=== PATIENT | female | born 1965 | race Caucasian/White ===

== ENCOUNTER 2016-11-12 18:15 | Emergency (ER) | payer BC, OTHER ==
--- NOTE | 2016-11-12 18:58 | EDM.PDOC ---
ED HPI GI/ABDOMINAL - General Chief Complaint: Gastrointestinal Problem Stated Complaint: VOMITING, UNABLE TO URINATE, DIARRHEA Time Seen by Provider: 11/12/16 18:57 Source of Information: Reports: Patient History Limitations: Reports: No limitations - History of Present Illness INITIAL COMMENTS - FREE TEXT/NARRATIVE: 50-year-old female presents the ED with acute onset of gastroenteritis symptoms. She states she woke around 0800 hours this morning with a severe nausea. She has not vomited yet today. She can hardly eat or drink. She maybe has kept on 20 ounces of water today. She's had large-volume stool losses 6-7 times mostly water without blood. No associated cramping. Associated fever with some chills in fact she can't keep warm today. Temperature up to 101.5 at home. Minimal cough generalized myalgias mild headache. No exposure that we can identify for foodborne illness. No no she knows is ill at this time. She has irritable bowel syndrome. Previous abdominal surgery includes a hysterectomy with retention of the ovaries. She reports she's dizzy and lightheaded when standing and very weak. She states she voided about 0900 hours this morning and nothing since. Symptom Onset Date: 11/12/16 Symptom Onset Time: 08:00 Timing/Duration: Reports: Hour(s):, Sudden onset Location: generalized Quality: Reports: ache, fullness. Denies: cramping, stabbing, throbbing, radiating Severity: moderate Improves with: Reports: defecating Context: Denies: sick contact, bad/questionable food, out of country travel, recent surgery, recent trauma, lifting, activity/exercise, other Associated Symptoms (-Female): Reports: diarrhea, fever/chills (Generalized myalgia), loss of appetite, malaise, nausea/vomiting, other. 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: Other (see below) (Nausea without vomiting no) - Related Data Allergies/ADRs: Allergies Allergy/AdvReac Type Severity Reaction Status Date / Time grass pollen Allergy Other Verified 11/12/16 18:32 oxycodone HCl Allergy Itching Verified 11/12/16 18:32 [From OxyContin] pollen extracts Allergy Other Verified 11/12/16 18:32 pet dander Allergy Other Uncoded 11/12/16 18:32 Home Meds: Home Meds Atenolol 50 mg PO DAILY 08/03/15 [History] Biotin 1 mg PO DAILY 08/03/15 [History] Calcium Carbonate/Vitamin D3 [Calcium 600 + D Tablet] 1 tab PO DAILY 08/03/15 [ History] Loratadine [Claritin] 10 mg PO DAILY 08/03/15 [History] Multivitamin [Daily Alex] 1 tab PO DAILY 08/03/15 [History] buPROPion [Wellbutrin XL] 300 mg PO DAILY 08/03/15 [History] Cholecalciferol (Vitamin D3) [Vitamin D3] 5,000 unit PO DAILY 04/11/16 [History] Ginkgo Biloba [place] Extract [Ginkgo] 60 mg PO DAILY 04/11/16 [History] Ondansetron [Zofran ODT] 4 mg PO Q6H #5 tab.dis 11/12/16 [Rx] Past Medical History HEENT History: Reports: Impaired vision Other HEENT History: Wears glasses Cardiovascular History: Reports: Arrhythmia Other Cardiovascular History: PSVT Respiratory History: Reports: Asthma Gastrointestinal History: Reports: Irritable bowel syndrome Genitourinary History: Reports: Renal calculus, Urinary incontinence Musculoskeletal History: Reports: Other (see below) (Scoliosis) Neurological History: Reports: Headaches, chronic Psychiatric History: Reports: ADHD, Depression Endocrine/Metabolic History: Reports: Obesity/BMI 30+ - Past Surgical History HEENT Surgical History: Reports: Naso-sinus surgery, Oral surgery, Tonsillectomy Female Surgical History: Reports: Hysterectomy, Tubal ligation Social & Family History - Family History Family Medical History: Noncontributory Oncologic: Reports: Colon, Leukemia, Lung - Tobacco Use Smoking Status *Q: Former Smoker Years of Tobacco use: 12 Packs/Tins Daily: 0.1 Used Tobacco, but Quit: Yes Month Tobacco Last Used: Oct 2015 Tobacco Use Comment: quit smoking 1 year ago Second Hand Smoke Exposure: No - Caffeine Use Caffeine Use: Reports: None - Alcohol Use Days Per Week of Alcohol Use: 1 Number of Drinks Per Day: 2 Total Drinks Per Week: 2 - Recreational Drug Use Recreational Drug Use: No Drug Use in Last 12 Months: No - Living Situation & Occupation Living situation: Reports: , with spouse Occupation: unemployed ED ROS GENERAL - Review of Systems Review Of Systems: See Below Constitutional: Reports: fever, chills, malaise, weakness, fatigue, decreased appetite HEENT: Reports: No symptoms Respiratory: Reports: cough Cardiovascular: Reports: No symptoms (Minimal nonproductive cough) Endocrine: Reports: fatigue GI/Abdominal: Reports: Abdominal pain, Diarrhea (6-7 large volume water stool losses today. Mostly yellow and watery color.), Decreased appetite, Nausea. Denies: Vomiting : Reports: no symptoms Musculoskeletal: Reports: muscle pain (Generalized myalgia.) Skin: Reports: no symptoms Neurological: Reports: dizziness (When she stands up and tries to walk. Very weak.) Psychiatric: Reports: No symptoms Hematologic/Lymphatic: Reports: no symptoms Immunologic: Reports: no symptoms ED EXAM, GI/ABD - Physical Exam Exam: See Below Exam Limited By: No limitations General Appearance: alert, WD/WN, mild distress, other (Feels warm to palpation. ) Eyes: bilateral: normal appearance Throat/Mouth: Other Head: atraumatic (Tongue appears mildly dry.), normocephalic Neck: normal inspection, supple, non-tender, full range of motion. No: lymphadenopathy (L), lymphadenopathy (R) Respiratory/Chest: no respiratory distress, lungs clear, normal breath sounds, no accessory muscle use, chest non-tender. No: rales, rhonchi, wheezing Cardiovascular: normal peripheral pulses, regular rate, rhythm, no edema, no gallop, no murmur, no rub GI/Abdominal: normal bowel sounds, soft, non tender, no organomegaly, no distention, no abnormal bruit, no mass, other (Mildly obese.) Back Exam: normal inspection, full range of motion. No: CVA tenderness (L), CVA tenderness (R) Extremities: normal inspection, normal range of motion, non-tender, no pedal edema, normal capillary refill Neurological: alert, oriented, CN II-XII intact, normal cognition Psychiatric: normal affect, normal mood Skin Exam: Warm, Dry, Intact, Normal color, No rash, Other Course - Vital Signs Text/Narrative:: 50-year-old female presents the ED with acute onset of gastroenteritis symptoms since get o'clock this morning. Associated persistent nausea with inability to eat or drink much at all today. No vomiting. She's had 6-7 large volume water loss stools today but is mostly yellow. No recent antibiotic usage. Associated fever and quite significant chills. Does have a minimal nonproductive cough. Generalized myalgia with a headache. Concern for possible influenza B as it is running rampant in the community. Likely viral gastroenteritis. Plan IV D5 normal saline at open. Reglan 10 mg IV for nausea relief. Routine labs to be performed. If she has a stool will check it for WBCs. Last Recorded V/S: Last Vital Signs Temp 38.2 C H 11/12/16 20:07 Pulse 103 H 11/12/16 20:07 Resp 18 11/12/16 20:07 BP 123/74 11/12/16 20:07 Pulse Ox 100 11/12/16 20:07 - Orders/Labs/Meds Orders: Active Orders 24 hr Category Date Time Status WBC, STOOL [OP] Stat Lab 11/12/16 19:16 Uncollected Dextrose 5%-0.9% NaCl [Dextrose 5%-Normal Saline] 1,000 Med 11/12/16 19:15 Active ml IV ASDIRECTED Medication Orders Dextrose/Sodium Chloride (Dextrose 5%-Normal Saline) 1,000 mls @ 999 mls/hr IV ASDIRECTED DEION Last Admin: 11/12/16 19:24 Dose: 999 mls/hr Labs: Laboratory Tests 11/12/16 11/12/16 11/12/16 Range/Units 19:20 19:20 20:33 WBC 10.10 H (3.98-10.04) K/mm3 RBC 4.35 (3.98-5.22) M/mm3 Hgb 13.1 (11.2-15.7) gm/L Hct 39.6 (34.1-44.9) % MCV 91.0 (79.4-94.8) fl MCH 30.1 (25.6-32.2) pg MCHC 33.1 (32.2-35.5) g/dl RDW Std Deviation 40.9 (36.4-46.3) fL Plt Count 288 (182-369) K/mm3 MPV 10.1 (9.4-12.3) fl Neutrophils % (Manual) 93 H (40-60) % Band Neutrophils % 0 (0-10) % Lymphocytes % (Manual) 5 L (20-40) % Atypical Lymphs % 0 % Monocytes % (Manual) 1 L (2-10) % Eosinophils % (Manual) 1 (0.7-5.8) % Basophils % (Manual) 0 L (0.1-1.2) Platelet Estimate Adequate Plt Morphology Comment See note RBC Morph Comment Normal Sodium 136 (136-145) mEq/L Potassium 3.8 (3.5-5.1) mEq/L Chloride 101 (98-107) mEq/L Carbon Dioxide 26 (21-32) mEq/L Anion Gap 12.8 (5-15) BUN 13 (7-18) mg/dL Creatinine 0.9 (0.55-1.02) mg/dL Est Cr Clr Drug Dosing 70.01 mL/min Estimated GFR (MDRD) > 60 (>60) mL/min BUN/Creatinine Ratio 14.4 (14-18) Glucose 105 (74-106) mg/dL Calcium 8.9 (8.5-10.1) mg/dL Total Bilirubin 0.4 (0.2-1.0) mg/dL AST 18 (15-37) U/L ALT 39 (14-59) U/L Alkaline Phosphatase 79 (46-116) U/L C-Reactive Protein 5.8 H* (<1.0) mg/dL Total Protein 7.2 (6.4-8.2) g/dl Albumin 3.6 (3.4-5.0) g/dl Globulin 3.6 gm/dL Albumin/Globulin Ratio 1.0 (1-2) Urine Color Yellow (Yellow) Urine Appearance Clear (Clear) Urine pH 6.5 (5.0-8.0) Ur Specific [place] 1.020 (1.005-1.030) Urine Protein Negative (Negative) Urine Glucose (UA) Negative (Negative) Urine Ketones Negative (Negative) Urine Occult Blood Trace-intact H (Negative) Urine Nitrite Negative (Negative) Urine Bilirubin Negative (Negative) Urine Urobilinogen 0.2 (0.2-1.0) Ur Leukocyte Esterase Negative (Negative) Urine RBC 0-5 (0-5) /hpf Urine WBC 0-5 (0-5) /hpf Ur Epithelial Cells 0-5 (0-5) /hpf Urine Bacteria Rare (FEW) /hpf Urine Mucus Not seen (FEW) /hpf Meds: Medications Generic Name Dose Route Start Last Admin Trade Name Evan PRN Reason Stop Dose Admin Dextrose/Sodium Chloride 1,000 mls @ 999 mls/hr 11/12/16 19:15 11/12/16 19:24 Dextrose 5%-Normal Saline IV 999 mls/hr ASDIRECTED DEION Administration Discontinued Medications Generic Name Dose Route Start Last Admin Trade Name Evan PRN Reason Stop Dose Admin Ibuprofen 600 mg 11/12/16 19:30 11/12/16 19:28 Motrin PO 11/12/16 19:31 600 mg ONETIME ONE Administration Metoclopramide HCl 10 mg 11/12/16 19:05 11/12/16 19:27 Reglan IVPUSH 11/12/16 19:06 10 mg ONETIME ONE Administration - Radiology Interpretation Free Text/Narrative:: 50-year-old female presents the ED with acute onset of gastroenteritis. About 0830 hours this morning she developed acute nausea and inset dry heaving since. She did produce some bilious emesis but swallowed it once today. She said large volume stool loss x6 or 7 today watery and yellow with no blood. Associated minimal abdominal cramping pain. Some nausea she can't eat or keep anything down and is getting lightheaded and dizzy. Plan IV D5 normal saline at open. Reglan 10 mg IV for nausea relief. Routine labs to be performed and a urinalysis. - Re-Assessments/Exams Free Text/Narrative Re-Assessment/Exam: 11/12/16 21:15labs revealed a normal white count at 10.10. Differential was 93% neutrophils and no bands. Hemoglobin 13.1 hematocrit 39.6 platelets 288,000. Sodium 136 potassium 3.8 CRP is elevated at 5.8 anion gap is 12.8. Between be elevated or left shift of the white count and the elevated CRP is suggests a bacterial source of her illness. I'm going to send her home as she is feeling much improved and able to drink fluids in the ED. She completed a liter of D5 normal saline and has no nausea Reglan 10 mg IV. To be discharged on Zofran 4 mg sublingual every 4-6 hours p.m. for nausea or vomiting relief. I'm going to write a prescription for Cipro 500 mg twice daily for 5 days to start tomorrow if she has more than for further loose stools. Followup with her personal physician if any further problems occur. Of note she was never able to produce a stool specimen in the ED for white cell or culture assessment. Departure - Departure Time of Disposition: 21:07 Disposition: Home, Self-Care 01 Condition: fair Clinical Impression: Gastroenteritis Prescriptions: Ondansetron [Zofran ODT] 4 mg PO Q6H #5 tab.dis Instructions: Viral Gastroenteritis, Adult Referrals: Patti Avitia, MACHINE OPERATOR ASSISTANT [Primary Care Provider] - Forms: ED Department Discharge, Return to Work/School Form Additional Instructions: evaluation in the emergency department today in regards to development of acute gastroenteritis with severe nausea and associated dry heaves and significant loose watery diarrhea. No history to suggest possible foodborne illness. Lab work showed a normal white count but it did show some mild inflammation with a mildy elevated CRP at 5.8.this sometimes can be suggestive of a bacterial source of diarrhea. You're treated with a liter of IV fluids in the ED and Reglan 10 mg IV disease nausea. The remainder of her labs and urine test were normal. Treatment at home is Zofran 4 mg under the tongue every 4-6 hours as needed for relief of nausea or vomiting. The next tablet to be taken about midnight and I would suggest repeating at about 6:00 in the morning to ensure no vomiting over the next 12 hours. After this a may be used as needed. Rehydrate you a prescription for antibiotic Cipro 500 mg twice daily for 5 days if he should develop bacterial associated diarrhea. I don't want you to fill this prescription unless you develop more than 4 loose movements again tomorrow. Diet should be clear fluids such Gatorade Powerade ideally 5-6 ounces per hour. If tolerated then may progress to crackers when you become hungry. He then progressed to red. May then progress to broth soup or turkey rice turkey noodle except. Suggesting away from all dairy products and no apple or grape juice until stools are formed backup. Followup if not markedly improved we will back to normal in 48 hours time. - My Orders Last 24 Hours: My Active Orders 11/12/16 19:15 Dextrose 5%-0.9% NaCl [Dextrose 5%-Normal Saline] 1,000 ml IV ASDIRECTED 11/12/16 19:16 WBC, STOOL [OP] Stat - Assessment/Plan Last 24 Hours: My Active Orders 11/12/16 19:15 Dextrose 5%-0.9% NaCl [Dextrose 5%-Normal Saline] 1,000 ml IV ASDIRECTED 11/12/16 19:16 WBC, STOOL [OP] Stat
[2016-11-12] MEDS ORDERED: Metoclopramide 10 MG/2 ML SDV IVPUSH ONE (19:05)
[2016-11-12] MEDS ORDERED: Dextrose 5%-0.9% NaCl 1,000 ML IV SCH (19:15)
[2016-11-12] MEDS ORDERED: Ibuprofen 600 MG Tab PO ONE (19:30)
[2016-11-12 21:22] VITALS: BP 107/64
== END 2016-11-12 21:20 | disposition home or self-care (01) ==
LOC: JD.ED 18:15
DX: K52.9 Noninfective gastroenteritis and colitis, unspecified (principal); I49.9 Cardiac arrhythmia, unspecified; J45.909 Unspecified asthma, uncomplicated; F32.9 Major depressive disorder, single episode, unspecified; E66.9 Obesity, unspecified; Z87.891 Personal history of nicotine dependence; Z88.8 Allergy status to other drugs, medicaments and biological substances; Z79.899 Other long term (current) drug therapy; Z98.890 Other specified postprocedural states; Z90.710 Acquired absence of both cervix and uterus; Z98.51 Tubal ligation status
CPT/HCPCS: 36415; 80053; 81001; 85025; 86140; 87804; 96361; 96374; 99284; A9270; J2765; J7042

== ENCOUNTER 2017-11-30 11:36 | Emergency (ER) | payer OTHER ==
[2017-11-30 11:51] VITALS: BP 128/92
[2017-11-30] MEDS ORDERED: Ketorolac 60 MG/2 ML SDV IM ONE (13:36)
[2017-11-30] MEDS ORDERED: HYDROmorphone 1 MG/ML Syringe IM ONE (13:38)
--- NOTE | 2017-11-30 13:40 | EDM.PDOC ---
ED HPI GENERAL MEDICAL PROBLEM - General Chief Complaint: Upper Extremity Injury/Pain Stated Complaint: SHOULDER PAIN AND LT ARM WEAKNESS Time Seen by Provider: 11/30/17 13:19 Source of Information: Reports: Patient History Limitations: Reports: No Limitations - History of Present Illness INITIAL COMMENTS - FREE TEXT/NARRATIVE: 51-year-old female presents for evaluationand treatment of pain to the left neck, left shoulder and left arm. Reportedly the patient's symptoms started on Saturday. No known trauma to the area. She is appreciating weakness to the left side. No numbness or tingling to the left arm. She reports inability to sleep due to the pain. Pain is made much worse by movement. In addition, she reports associated headaches. No dizziness, lightheadedness or syncope. Patient describes the pain as a dull, achy sensation. Reports the pain as a 6 or 7 out of 10 at rest. With movement the pain is an 8 or 9 out of 10. Denies any chest pain, shortness breath, nausea or vomiting. No previous surgeries or trauma to the neck. Location: Reports: Neck, Upper Extremity, Left Left Shoulder Pain Score (Numeric/FACES): 7 - Related Data Allergies Allergy/AdvReac Type Severity Reaction Status Date / Time grass pollen Allergy Other Verified 11/12/16 18:32 oxycodone HCl Allergy Itching Verified 11/12/16 18:32 [From OxyContin] pollen extracts Allergy Other Verified 11/12/16 18:32 pet dander Allergy Other Uncoded 11/12/16 18:32 Home Meds: Home Meds Atenolol 50 mg PO DAILY 08/03/15 [History] Biotin 1 mg PO DAILY 08/03/15 [History] Calcium Carbonate/Vitamin D3 [Calcium 600 + D Tablet] 1 tab PO DAILY 08/03/15 [ History] Loratadine [Claritin] 10 mg PO DAILY 08/03/15 [History] Multivitamin [Daily Alex] 1 tab PO DAILY 08/03/15 [History] buPROPion [Wellbutrin XL] 300 mg PO DAILY 08/03/15 [History] Cholecalciferol (Vitamin D3) [Vitamin D3] 5,000 unit PO DAILY 04/11/16 [History] Acetaminophen/HYDROcodone [[place] 325-5 MG] 1 tab PO Q6H PRN #15 tablet 11/30/17 [Rx] Orphenadrine [Norflex] 100 mg PO BID PRN #20 tab.er 11/30/17 [Rx] hydrOXYzine HCl [Atarax] 25 mg PO BEDTIME PRN 11/30/17 [History] Past Medical History HEENT History: Reports: Impaired Vision Other HEENT History: Wears glasses Cardiovascular History: Reports: Arrhythmia Other Cardiovascular History: PSVT Respiratory History: Reports: Asthma Gastrointestinal History: Reports: Irritable Bowel Syndrome Genitourinary History: Reports: Renal Calculus, Urinary Incontinence Musculoskeletal History: Reports: Other (See Below) Neurological History: Reports: Headaches, Chronic Psychiatric History: Reports: ADHD, Depression Endocrine/Metabolic History: Reports: Obesity/BMI 30+ - Past Surgical History HEENT Surgical History: Reports: Naso-Sinus Surgery, Oral Surgery, Tonsillectomy Female Surgical History: Reports: Hysterectomy, Tubal Ligation Musculoskeletal Surgical History: Reports: Other (See Below) Social & Family History - Family History Family Medical History: Noncontributory Oncologic: Reports: Colon, Leukemia, Lung - Tobacco Use Smoking Status *Q: Former Smoker Years of Tobacco use: 12 Packs/Tins Daily: 0.1 Used Tobacco, but Quit: Yes Month/Year Tobacco Last Used: 2 years ago Second Hand Smoke Exposure: No - Caffeine Use Caffeine Use: Reports: Coffee - Alcohol Use Days Per Week of Alcohol Use: 1 Number of Drinks Per Day: 2 Total Drinks Per Week: 2 - Recreational Drug Use Recreational Drug Use: No Drug Use in Last 12 Months: No - Living Situation & Occupation Living situation: Reports: , with Spouse Occupation: Unemployed Review of Systems - Review of Systems Review Of Systems: See Below Respiratory: Denies: Shortness of Breath Cardiovascular: Denies: Chest Pain Musculoskeletal: Reports: Neck Pain (left), Shoulder Pain (left), Arm Pain (left ) Skin: Denies: Rash Neurological: Reports: Weakness (Left arm). Denies: Numbness, Tingling ED EXAM, GENERAL - Physical Exam Exam: See Below Exam Limited By: No Limitations General Appearance: Alert, WD/WN, Moderate Distress Ears: Normal External Exam Nose: Normal Inspection Throat/Mouth: Normal Inspection, Normal Lips, Normal Voice, No Airway Compromise Neck: Normal Inspection, Supple, Non-Tender, Full Range of Motion, Other ( Positive Spurling's test) Respiratory/Chest: No Respiratory Distress, Lungs Clear, Normal Breath Sounds Cardiovascular: Normal Peripheral Pulses, Regular Rate, Rhythm, No Murmur Peripheral Pulses: 2+: Radial (L), Radial (R) Back Exam: Normal Inspection, Other (Slight scoliosis present). No: Vertebral Tenderness Extremities: Normal Inspection, Other (Strength testing 5 out of 5 on the right for shoulder flexion, elbow flexion, elbow extension, wrist extensor, wrist extension and finger abduction. Testing on the left shows strength 4.5 out of 5 for shoulder flexion, elbow flexion, elbow extension, wrist flexion. Strength 5 out of 5 on the left for wrist extension and finger abduction) Neurological: Alert, Oriented, Normal Cognition Psychiatric: Normal Affect, Normal Mood Skin Exam: Warm, Dry. No: Erythema, Rash, Zoster-Like Rash Course - Vital Signs Last Recorded V/S: Last Vital Signs Temp 36.9 C 11/30/17 11:48 Pulse 78 11/30/17 11:48 Resp 18 11/30/17 11:48 BP 128/92 H 11/30/17 11:48 Pulse Ox 96 11/30/17 11:48 - Orders/Labs/Meds Meds: Medications Discontinued Medications Generic Name Dose Route Start Last Admin Trade Name Freq PRN Reason Stop Dose Admin Hydromorphone HCl 0.5 mg 11/30/17 13:38 Dilaudid IM 11/30/17 13:39 ONETIME ONE Hydromorphone HCl 0.5 mg 11/30/17 13:52 11/30/17 13:57 Dilaudid IM 11/30/17 13:53 0.5 mg ONETIME ONE Administration Ketorolac Tromethamine 60 mg 11/30/17 13:36 11/30/17 13:58 Toradol IM 11/30/17 13:37 60 mg ONETIME ONE Administration - Radiology Interpretation Free Text/Narrative:: CT cervical spine Technique: Multiple axial sections were obtained from above C1 inferiorly to the top of T1. Reconstructed sagittal and coronal images were reviewed. Comparison: No prior cervical spine imaging. Findings: C1-C2: Segmentation anomaly is noted within C2 which is incidental and a normal variant. C2-C3: Severe disc space narrowing is noted with posterolateral spurring causing mild left-sided neural foraminal stenosis and moderate right-sided neural foraminal stenosis. No central canal stenosis is seen. C3-C4: Disc is mildly narrowed. No central canal stenosis or neural foraminal stenosis is seen. C4-C5: Severe disc space narrowing is seen. Posterolateral spurring is noted on both sides. Moderate right-sided neural foraminal stenosis is seen. Mild to moderate left-sided neural foraminal stenosis is seen. C5-C6: Severe disc space narrowing is noted. Minimal posterior osteophytes are seen. Moderate left-sided neural foraminal stenosis seen. Right neural foramina is patent. C6-C7: Disc height is preserved. No central canal stenosis or neural foraminal stenosis is seen. C7-T1: Disc height is preserved. No central canal stenosis or neural foraminal stenosis is seen. Diffuse degenerative spurring is seen within the uncovertebral joints. Mild scoliosis is seen. No abnormal subluxation is noted. Mild diffuse degenerative apophyseal change is seen. Impression: 1. Diffuse degenerative change as noted above with multiple levels of neural foraminal stenosis. - Re-Assessments/Exams Free Text/Narrative Re-Assessment/Exam: 11/30/17 15:[address] results with the patient. Reports that the pain has improved. Now at 2 at rest and a 3 or 4 with movement. We will put an outpatient order in for her to have an MRI of her cervical spine. She also reports that she is having significant pain to mid and lower back. Patient reports she has a past medical history of scoliosis. States this is significant. She's never had any surgery to her back. We will MRI these areas as well as have the results sent her primary care provider who can help us with the referral to neurosurgery. Discharge instructions as documented. Departure - Departure Time of Disposition: 15:45 Disposition: Home, Self-Care 01 Condition: Fair Clinical Impression: Cervical radiculopathy, Mid back pain, Low back pain, History of scoliosis - Discharge Information Prescriptions: Acetaminophen/HYDROcodone [[place] 325-5 MG] 1 tab PO Q6H PRN #15 tablet PRN Reason: Pain Orphenadrine [Norflex] 100 mg PO BID PRN #20 tab.er PRN Reason: Muscle Spasm Instructions: Back Pain, Adult, [id number] Referrals: Patti Avitia NP [Primary Care Provider] - Forms: ED Department Discharge Additional Instructions: you were given medication the ER that can affect your ability to drive and operate machinery. Do not drive or operate machinery within 12 hours of taking prescription narcotic pain medication. Recommend using ice or heat to the neck and back as needed for pain relief. may also try topical products such as icyhot or BenGay. Rest. Do not be include completely immobile. Activity as tolerated. Norflex 1 tab twice a day as needed for muscle spasms. This medication may make you drowsy. Do not drive or operate machinery into the nose medication will affect you. [id number] Tylenol or Motrin as needed for pain relief. Do not take more than 4 g of Tylenol from all sources in 1 day. Do not take more than 3200 mg of ibuprofen from all sources in 1 day. For pain not relieved by Tylenol or Motrin you may take [place] one tablet every 6 hours as needed for severe pain. [place] is habit-forming, I recommend you take as few of thes as needed to control your pain. Do not drive or operate machinery within 12 hours of taking prescription narcotic pain medication. An outpatient order has been placed read on MRI of your spine. They should call you Saturday to schedule this, if not call [phone] and asked for the radiology department to schedule. The results should then be sent to your primary care provider, Patti Avitia, follow-up with Patti for MRI results and for referral to neurosurgery. Please return to the ER if your symptoms change or worsen.
[2017-11-30] MEDS ORDERED: HYDROmorphone 0.5 MG/0.5 ML SYRINGE IM ONE (13:52)
--- NOTE | 2017-11-30 14:35 | CT ---
CT cervical spine Technique: Multiple axial sections were obtained from above C1 inferiorly to the top of T1. Reconstructed sagittal and coronal images were reviewed. Comparison: No prior cervical spine imaging. Findings: C1-C2: Segmentation anomaly is noted within C2 which is incidental and a normal variant. C2-C3: Severe disc space narrowing is noted with posterolateral spurring causing mild left-sided neural foraminal stenosis and moderate right-sided neural foraminal stenosis. No central canal stenosis is seen. C3-C4: Disc is mildly narrowed. No central canal stenosis or neural foraminal stenosis is seen. C4-C5: Severe disc space narrowing is seen. Posterolateral spurring is noted on both sides. Moderate right-sided neural foraminal stenosis is seen. Mild to moderate left-sided neural foraminal stenosis is seen. C5-C6: Severe disc space narrowing is noted. Minimal posterior osteophytes are seen. Moderate left-sided neural foraminal stenosis seen. Right neural foramina is patent. C6-C7: Disc height is preserved. No central canal stenosis or neural foraminal stenosis is seen. C7-T1: Disc height is preserved. No central canal stenosis or neural foraminal stenosis is seen. Diffuse degenerative spurring is seen within the uncovertebral joints. Mild scoliosis is seen. No abnormal subluxation is noted. Mild diffuse degenerative apophyseal change is seen. Impression: 1. Diffuse degenerative change as noted above with multiple levels of neural foraminal stenosis. Diagnostic code #3
== END 2017-11-30 16:00 | disposition home or self-care (01) ==
LOC: JD.ED 11:36
DX: M54.12 Radiculopathy, cervical region (principal); M54.5 Low back pain; Z79.899 Other long term (current) drug therapy; Z91.09 Other allergy status, other than to drugs and biological substances; Z88.8 Allergy status to other drugs, medicaments and biological substances
CPT/HCPCS: 72125; 96372; 99284; J1170; J1885

== ENCOUNTER 2018-02-19 19:13 | Emergency (ER) | payer OTHER ==
[2018-02-19 19:35] VITALS: BP 128/89
--- NOTE | 2018-02-19 19:39 | EDM.PDOC ---
ED HPI GENERAL MEDICAL PROBLEM - General Chief Complaint: Lower Extremity Injury/Pain Stated Complaint: RIGHT AND ANKLE PAIN Time Seen by Provider: 02/19/18 19:38 Source of Information: Reports: Patient - History of Present Illness INITIAL COMMENTS - FREE TEXT/NARRATIVE: Patient is here for evaluation of an ankle injury that happened just prior to arrival. She states that she was walking and twisted her right ankle and fell. She landed on her knees and her left elbow. Mild pain to those areas, but the majority of her pain is located in the right ankle. She has some swelling to this area as well. She has previously sprained this ankle several times. Right Ankle Pain Score (Numeric/FACES): 8 - Related Data Allergies Allergy/AdvReac Type Severity Reaction Status Date / Time bee venom protein (honey bee) Allergy Swelling Verified 02/19/18 19:35 grass pollen Allergy Other Verified 02/19/18 19:35 oxycodone HCl Allergy Itching Verified 02/19/18 19:35 [From OxyContin] pollen extracts Allergy Other Verified 02/19/18 19:35 pet dander Allergy Other Uncoded 02/19/18 19:35 Home Meds: Home Meds Atenolol 50 mg PO DAILY 08/03/15 [History] Biotin 1 mg PO DAILY 08/03/15 [History] Calcium Carbonate/Vitamin D3 [Calcium 600 + D Tablet] 1 tab PO DAILY 08/03/15 [ History] Multivitamin [Daily Alex] 1 tab PO DAILY 08/03/15 [History] buPROPion [Wellbutrin XL] 300 mg PO DAILY 08/03/15 [History] Cholecalciferol (Vitamin D3) [Vitamin D3] 5,000 unit PO DAILY 04/11/16 [History] hydrOXYzine HCl [Atarax] 25 mg PO BEDTIME PRN 11/30/17 [History] Cetirizine [ZyrTEC] 10 mg PO DAILY 02/19/18 [History] DULoxetine [Cymbalta] 60 mg PO DAILY 02/19/18 [History] Hydrocodone/Acetaminophen [Hydrocodon-Acetaminophen 5-325] 1 each PO Q6HR PRN # 10 tablet 02/19/18 [Rx] Past Medical History HEENT History: Reports: Impaired Vision Other HEENT History: Wears glasses Cardiovascular History: Reports: Arrhythmia Other Cardiovascular History: PSVT Respiratory History: Reports: Asthma Gastrointestinal History: Reports: Irritable Bowel Syndrome Genitourinary History: Reports: Renal Calculus, Urinary Incontinence Musculoskeletal History: Reports: Other (See Below) Neurological History: Reports: Headaches, Chronic Psychiatric History: Reports: ADHD, Depression Endocrine/Metabolic History: Reports: Obesity/BMI 30+ - Past Surgical History HEENT Surgical History: Reports: Naso-Sinus Surgery, Oral Surgery, Tonsillectomy Female Surgical History: Reports: Hysterectomy, Tubal Ligation Musculoskeletal Surgical History: Reports: Other (See Below) Social & Family History - Family History Family Medical History: Noncontributory Oncologic: Reports: Colon, Leukemia, Lung - Tobacco Use Smoking Status *Q: Never Smoker - Caffeine Use Caffeine Use: Reports: None - Recreational Drug Use Recreational Drug Use: Yes Recreational Drug Type: Reports: Marijuana/Hashish Other Recreational Drug Type: 4 years ago - Living Situation & Occupation Living situation: Reports: , with Spouse Occupation: Unemployed Review of Systems - Review of Systems Review Of Systems: See Below Musculoskeletal: Reports: Other (Pain and swelling to right ankle) Skin: Denies: Bruising, Erythema Neurological: Reports: No Symptoms Psychiatric: Reports: No Symptoms ED EXAM, GENERAL - Physical Exam Exam: See Below General Appearance: Alert, WD/WN, Mild Distress Peripheral Pulses: 2+: Posterior Tibial (R), Dorsalis Pedis (R) Extremities: Normal Capillary Refill, Other (Right ankle with moderate swelling to the lateral aspect, no ecchymosis or deformity noted. Tenderness to distal fibula and base of the fifth metatarsal. Limited range of motion at the ankle due to pain. Full range of motion of toes. Neurovascular intact.) Neurological: Alert, Oriented, No Motor/Sensory Deficits Skin Exam: Warm, Dry, Intact Course - Vital Signs Last Recorded V/S: Last Vital Signs Temp 97.1 F 02/19/18 19:31 Pulse 71 02/19/18 19:31 Resp 18 02/19/18 19:31 BP 128/89 02/19/18 19:31 Pulse Ox - Orders/Labs/Meds Orders: Active Orders 24 hr Category Date Time Status Ankle Min 3V Rt [CR] Stat Exams 02/19/18 19:46 Taken Meds: Medications Discontinued Medications Generic Name Dose Route Start Last Admin Trade Name Freq PRN Reason Stop Dose Admin Hydrocodone Bitart/Acetaminophen 1 tab 02/19/18 19:45 02/19/18 19:49 [place] 325-5 Mg PO 02/19/18 19:46 1 tab ONETIME ONE Administration - Re-Assessments/Exams Free Text/Narrative Re-Assessment/Exam: No fracture appreciated on x-ray, official radiology report is pending. Discussed the option of immobilization and NWB with patient, she does not feel she can do this with work. We'll put patient in a walking boot. She'll follow- up with her PCP in a week, certainly if no improvement in symptoms she should do this sooner. ibuprofen as needed for pain, hydrocodone for breakthrough pain. 02/19/18 20:42 Departure - Departure Time of Disposition: 20:43 Disposition: Home, Self-Care 01 Condition: Good Clinical Impression: Ankle sprain Qualifiers: Encounter type: initial encounter Laterality: right - Discharge Information Prescriptions: Hydrocodone/Acetaminophen [Hydrocodon-Acetaminophen 5-325] 1 each PO Q6HR PRN # 10 tablet PRN Reason: Pain Instructions: Ankle Sprain, [id number], Ankle Exercises-SportsMed Referrals: Patti Avitia NP [Primary Care Provider] - Forms: ED Department Discharge, ED Return to Work/School Form Additional Instructions: Wear walking boot throughout the day and be on your feet is limited as possible. Ice frequently,15 minutes 15 minutes off for today and then decrease frequency as pain improves. Ibuprofen 800 mg 3 times a day. Hydrocodone for breakthrough pain. Follow-up with your primary provider within the next week sooner if needed. - My Orders Last 24 Hours: My Active Orders 02/19/18 19:46 Ankle Min 3V Rt [CR] Stat - Assessment/Plan Last 24 Hours: My Active Orders 02/19/18 19:46 Ankle Min 3V Rt [CR] Stat
[2018-02-19] MEDS ORDERED: Acetaminophen/HYDROcodone 325-5 MG Tab PO ONE (19:45)
--- NOTE | 2018-02-20 07:42 | CR ---
Right ankle: Four views of the right ankle were obtained. Comparison: No prior ankle exam. Ankle mortise is slightly asymmetric regarding height which likely represents ligamentous laxity. Plantar spur is seen. No acute fracture, dislocation or other bony abnormality is seen. Impression: 1. Slightly asymmetric ankle mortise most likely due to chronic ligamentous laxity. 2. No acute bony abnormality is seen. Diagnostic code #2
== END 2018-02-19 21:11 | disposition home or self-care (01) ==
LOC: JD.ED 19:13
DX: S93.401A Sprain of unspecified ligament of right ankle, initial encounter (principal); J45.909 Unspecified asthma, uncomplicated; F32.9 Major depressive disorder, single episode, unspecified; F90.9 Attention-deficit hyperactivity disorder, unspecified type; Z79.899 Other long term (current) drug therapy; Z91.030 Bee allergy status; Z91.09 Other allergy status, other than to drugs and biological substances; Z88.6 Allergy status to analgesic agent; W19.XXXA Unspecified fall, initial encounter
CPT/HCPCS: 73610; 99283; A9270

== ENCOUNTER 2018-02-27 16:13 | Emergency (ER) | payer OTHER ==
[2018-02-27 16:25] VITALS: BP 114/85
--- NOTE | 2018-02-27 17:07 | EDM.PDOC ---
ED HPI GENERAL MEDICAL PROBLEM - General Chief Complaint: Lower Extremity Injury/Pain Stated Complaint: F/U R LEG INJURY Time Seen by Provider: 02/27/18 16:35 Source of Information: Reports: Patient, Old Records History Limitations: Reports: No Limitations - History of Present Illness INITIAL COMMENTS - FREE TEXT/NARRATIVE: 52 year old female presents for evaluation and treatment of an injury to the right foot and ankle. Injury occurred about 8 days ago. Patient was seen in the ER on 02-19-18. Xray of the right ankle showed no acute fractures. Ankle mortise was felt to be asymmetric. Patient was placed in a walking boot and instructed to follow-up with family med. Patient presents today as she is having worsening pain to the right foot and ankle. She was not follow-up with anyone. Reports right ankle pain, swelling and bruising. She has been utilizing elevation and ice. Patient feels things are "popping and moving: in her foot an ankle. No previous fractures to the foot or ankle. Reports she has sprained the ankle previously. Right Ankle Pain Score (Numeric/FACES): 4 - Related Data Allergies Allergy/AdvReac Type Severity Reaction Status Date / Time bee venom protein (honey bee) Allergy Swelling Verified 02/27/18 16:25 grass pollen Allergy Other Verified 02/27/18 16:25 oxycodone HCl Allergy Itching Verified 02/27/18 16:25 [From OxyContin] pollen extracts Allergy Other Verified 02/27/18 16:25 pet dander Allergy Other Uncoded 02/27/18 16:25 Home Meds: Home Meds Atenolol 50 mg PO DAILY 08/03/15 [History] Biotin 1 mg PO DAILY 08/03/15 [History] Calcium Carbonate/Vitamin D3 [Calcium 600 + D Tablet] 1 tab PO DAILY 08/03/15 [ History] Multivitamin [Daily Alex] 1 tab PO DAILY 08/03/15 [History] buPROPion [Wellbutrin XL] 300 mg PO DAILY 08/03/15 [History] Cholecalciferol (Vitamin D3) [Vitamin D3] 5,000 unit PO DAILY 04/11/16 [History] hydrOXYzine HCl [Atarax] 25 mg PO BEDTIME PRN 11/30/17 [History] Cetirizine [ZyrTEC] 10 mg PO DAILY 02/19/18 [History] DULoxetine [Cymbalta] 60 mg PO DAILY 02/19/18 [History] Hydrocodone/Acetaminophen [Hydrocodon-Acetaminophen 5-325] 1 each PO Q6HR PRN # 10 tablet 02/19/18 [Rx] Past Medical History HEENT History: Reports: Impaired Vision Other HEENT History: Wears glasses Cardiovascular History: Reports: Arrhythmia Other Cardiovascular History: PSVT Respiratory History: Reports: Asthma Gastrointestinal History: Reports: Irritable Bowel Syndrome Genitourinary History: Reports: Renal Calculus, Urinary Incontinence Musculoskeletal History: Reports: Other (See Below) Neurological History: Reports: Headaches, Chronic Psychiatric History: Reports: ADHD, Depression Endocrine/Metabolic History: Reports: Obesity/BMI 30+ - Past Surgical History HEENT Surgical History: Reports: Naso-Sinus Surgery, Oral Surgery, Tonsillectomy Female Surgical History: Reports: Hysterectomy, Tubal Ligation Musculoskeletal Surgical History: Reports: Other (See Below) Social & Family History - Family History Family Medical History: Noncontributory Oncologic: Reports: Colon, Leukemia, Lung - Tobacco Use Smoking Status *Q: Former Smoker Used Tobacco, but Quit: Yes Month/Year Tobacco Last Used: 3 years - Caffeine Use Caffeine Use: Reports: Coffee - Recreational Drug Use Recreational Drug Use: No - Living Situation & Occupation Living situation: Reports: , with Spouse Occupation: Unemployed Review of Systems - Review of Systems Review Of Systems: See Below Musculoskeletal: Reports: Joint Pain (right anlkle), Joint Swelling (right ankle ) Skin: Reports: Bruising (right lateral foot) Neurological: Reports: Difficulty Walking. Denies: Numbness, Tingling ED EXAM, GENERAL - Physical Exam Exam: See Below Exam Limited By: No Limitations General Appearance: Alert, WD/WN, No Apparent Distress Respiratory/Chest: No Respiratory Distress Cardiovascular: Normal Peripheral Pulses Peripheral Pulses: 2+: Posterior Tibial (L), Posterior Tibial (R), Dorsalis Pedis (L), Dorsalis Pedis (R) Extremities: Normal Capillary Refill, Joint Swelling (minor to the right ankle, distal to the lateral malleolus), Limited Range of Motion (due to pain testing deferred), Other (identifies pain to the right proximal 5th metatarsal and the right distal lateral malleolus). No: Increased Warmth Neurological: Alert, Oriented, Normal Cognition, Other (reports good sensation to light touch) Psychiatric: Normal Affect, Normal Mood Skin Exam: Warm, Dry, Normal Color, Ecchymosis (right lateral foot) Course - Vital Signs Last Recorded V/S: Last Vital Signs Temp 97 F 02/27/18 16:22 Pulse 69 02/27/18 16:22 Resp 16 02/27/18 16:22 BP 114/85 02/27/18 16:22 Pulse Ox 100 02/27/18 16:22 - Radiology Interpretation Free Text/Narrative:: xray of the right foot shows no acute fractures or dislocations xray of the right ankle is unchanged from one week ago, slight asymmetry to the ankle mortise. No acute fractues. - Re-Assessments/Exams Free Text/Narrative Re-Assessment/Exam: 02/27/18 17:45 I reviewed the xray results with the patient. She does not feel she is doing well in the walking boot. I offered a splint and crutches but she does not feel she can move in these safely. She would like to wear an aircast but due to concerns with ligamentous injury I do not feel that would give enough support. She decides to stay in the walking boot. Will discharge home at this time. Instructed to follow-up with orthopedics. Discharge instructions as documented. Departure - Departure Time of Disposition: 17:46 Disposition: Home, Self-Care 01 Condition: Fair Clinical Impression: Right ankle sprain - Discharge Information Instructions: Ankle Sprain Referrals: Patti Avitia NP [Primary Care Provider] - Hari Washington MD [Physician] - Forms: ED Department Discharge Additional Instructions: OTC tylenol or motrin as needed for discomfort. elevated the foot as much as possible. Ice the foot and ankle 3-4 times a day for 15 minutes. continue to wear the walking boot, may remove to shower. Follow-up with orthopedics next week. Call [phone] to schedule with him. Please return to the ER should your symptoms change or worsen.
--- NOTE | 2018-02-28 10:22 | CR ---
Right foot: Four views of the right foot were obtained. Comparison: No prior foot exam is available. Plantar spur is seen. No fracture, dislocation or other bony abnormality is identified. Impression: 1. Plantar spur. Nothing acute is seen on four view right foot exam. Diagnostic code #2
--- NOTE | 2018-02-28 10:22 | CR ---
Right ankle: Four views of the right ankle were obtained. Comparison: Prior right ankle study of 02/19/18. Ankle mortise appears symmetric. Previous asymmetry within the ankle mortise not appreciated on current exam. Plantar spur is noted. Small calcification is noted off the anterior distal tibia which appears old. Mild soft tissue swelling is present. No acute fracture or other abnormality is identified. Impression: 1. Soft tissue swelling. 2. Other incidental findings. No acute bony abnormality is identified. Diagnostic code #2
== END 2018-02-27 17:55 | disposition home or self-care (01) ==
LOC: JD.ED 16:13
DX: S93.401A Sprain of unspecified ligament of right ankle, initial encounter (principal); E66.9 Obesity, unspecified; Z91.030 Bee allergy status; Z91.048 Other nonmedicinal substance allergy status; Z79.899 Other long term (current) drug therapy; Z87.891 Personal history of nicotine dependence; X58.XXXA Exposure to other specified factors, initial encounter
CPT/HCPCS: 73610-26-RT; 73610-RT; 73630-26-RT; 73630-RT; 99283

== ENCOUNTER 2019-09-10 08:09 | Emergency (ER) | payer OTHER ==
[2019-09-10 08:27] VITALS: BP 147/101; PULSE 65
[2019-09-10] MEDS ORDERED: Ketorolac 30 MG/ML SDV IVPUSH ONE (08:41)
[2019-09-10] MEDS ORDERED: Cyclobenzaprine 10 MG Tab PO ONE (08:41)
[2019-09-10] MEDS ORDERED: Sodium Chloride 0.9% 10 ML Syringe FLUSH PRN (08:42)
[2019-09-10] MEDS ORDERED: Aspirin 81 MG Tab.Chew PO ONE (08:42)
--- NOTE | 2019-09-10 08:52 | EDM.PDOC ---
ED HPI GENERAL MEDICAL PROBLEM - General Chief Complaint: Chest Pain Stated Complaint: UPPER BACK PAIN Time Seen by Provider: 09/10/19 08:27 Source of Information: Reports: Patient History Limitations: Reports: No Limitations - History of Present Illness INITIAL COMMENTS - FREE TEXT/NARRATIVE: Patient is a 53-year-old female who presents with complaints of upper back pain that radiates over her left shoulder and into her chest collar bone and jaw. She states she awoke with this pain at 6:30 this morning. She states it is painful to take a deep breath in her chest wall is tender to palpation. She does have a history of chronic back problems. She has had a spinal fusion of L4 -S1. She does verbalize that she has degenerative disc disease in her neck. He has no history of MIs but does have a history of PSVT. She denies any lifting or strenuous activity last night. She took 400 mg of ibuprofen around 7 :30 this morning with no relief. Denies nausea, vomiting, or diaphoresis, however, she does she state that she feels short of breath due to pain with deep inspiration. Back Pain Score (Numeric/FACES): 9 - Related Data Allergies Allergy/AdvReac Type Severity Reaction Status Date / Time bee venom protein (honey bee) Allergy Swelling Verified 09/10/19 08:28 grass pollen Allergy Other Verified 09/10/19 08:28 oxycodone HCl Allergy Itching Verified 09/10/19 08:28 [From OxyContin] pollen extracts Allergy Other Verified 09/10/19 08:28 pet dander Allergy Other Uncoded 09/10/19 08:28 Home Meds: Home Meds Biotin 1 mg PO DAILY 08/03/15 [History] Calcium Carbonate/Vitamin D3 [Calcium 600 + D Tablet] 1 tab PO DAILY 08/03/15 [ History] Multivitamin [Daily Alex] 1 tab PO DAILY 08/03/15 [History] atenoloL [Atenolol] 50 mg PO DAILY 08/03/15 [History] Cholecalciferol (Vitamin D3) [Vitamin D3] 5,000 unit PO DAILY 04/11/16 [History] hydrOXYzine HCL [Atarax] 25 mg PO BEDTIME PRN 11/30/17 [History] Cetirizine [ZyrTEC] 10 mg PO DAILY 02/19/18 [History] Cyclobenzaprine [Flexeril] 10 mg PO TID PRN #10 tab 09/10/19 [Rx] Naproxen [Naprosyn] 500 mg PO Q12HR 5 Days #10 tab 09/10/19 [Rx] Selenium 1 tab 09/10/19 [History] Past Medical History HEENT History: Reports: Impaired Vision Other HEENT History: Wears glasses Cardiovascular History: Reports: Arrhythmia Other Cardiovascular History: PSVT Respiratory History: Reports: Asthma Gastrointestinal History: Reports: Irritable Bowel Syndrome Genitourinary History: Reports: Renal Calculus, Urinary Incontinence Musculoskeletal History: Reports: Other (See Below) Other Musculoskeletal History: Pt had back effusion surgery L4-S1 in 2018. Neurological History: Reports: Headaches, Chronic Psychiatric History: Reports: ADHD, Anxiety, Depression Endocrine/Metabolic History: Reports: Obesity/BMI 30+ - Past Surgical History HEENT Surgical History: Reports: Naso-Sinus Surgery, Oral Surgery, Tonsillectomy Female Surgical History: Reports: Hysterectomy, Tubal Ligation Musculoskeletal Surgical History: Reports: Other (See Below) Social & Family History - Family History Family Medical History: Noncontributory Oncologic: Reports: Colon, Leukemia, Lung - Tobacco Use Smoking Status *Q: Current Some Day Smoker Years of Tobacco use: 40 Packs/Tins Daily: 0.1 - Caffeine Use Caffeine Use: Reports: None - Recreational Drug Use Recreational Drug Use: No - Living Situation & Occupation Living situation: Reports: , with Spouse Occupation: Unemployed ED ROS GENERAL - Review of Systems Review Of Systems: See Below Constitutional: Reports: No Symptoms HEENT: Reports: No Symptoms Respiratory: Reports: Shortness of Breath. Denies: Wheezing, Cough Cardiovascular: Reports: Chest Pain Endocrine: Reports: No Symptoms GI/Abdominal: Reports: No Symptoms. Denies: Nausea, Vomiting : Reports: No Symptoms Musculoskeletal: Reports: Shoulder Pain (Left), Back Pain, Other (Generalized chest wall pain. Left jaw pain.) Skin: Reports: No Symptoms Neurological: Denies: Dizziness Psychiatric: Reports: No Symptoms Hematologic/Lymphatic: Reports: No Symptoms Immunologic: Reports: No Symptoms ED EXAM, GENERAL - Physical Exam Exam: See Below Exam Limited By: No Limitations General Appearance: Alert, WD/WN, No Apparent Distress Head: Atraumatic, Normocephalic Neck: Normal Inspection, Supple, Tender Lateral (Left. Pain radiating down to left posterior shoulder with lateral head movement in both directions.) Respiratory/Chest: No Respiratory Distress, Lungs Clear, Normal Breath Sounds, No Accessory Muscle Use, Other (Chest wall tender throughout.) Cardiovascular: Normal Peripheral Pulses, Regular Rate, Rhythm, No Edema, No Murmur GI/Abdominal: Normal Bowel Sounds, Soft, Non-Tender Back Exam: Normal Inspection, Decreased Range of Motion, Muscle Spasm (Left trapezius muscle), Paraspinal Tenderness (Left lateral to T1). No: Vertebral Tenderness Extremities: Normal Inspection, Normal Range of Motion, Non-Tender Neurological: Alert, Oriented, Normal Cognition Psychiatric: Normal Affect, Normal Mood Skin Exam: Warm, Dry, Intact, Normal Color, No Rash EKG INTERPRETATION EKG Date: 09/10/19 Time: 08:27 Rhythm: NSR Rate (Beats/Min): 61 [place]: Normal P-Wave: Present QRS: Normal ST-T: Normal QT: Normal EKG Interpretation Comments: incomplete RBB pattern T-wave inversion V1-V3 - unclear etiology. Course - Vital Signs Last Recorded V/S: Last Vital Signs Temp 97.6 F 09/10/19 08:26 Pulse 65 09/10/19 08:26 Resp 24 H 09/10/19 08:26 BP 147/101 H 09/10/19 08:26 Pulse Ox 100 09/10/19 08:26 - Orders/Labs/Meds Orders: Active Orders 24 hr Category Date Time Status EKG Documentation Completion [RC] STAT Care 09/10/19 08:29 Active Peripheral IV Care [RC] . DIRECTED Care 09/10/19 08:42 Active Peripheral IV Insertion Adult [OM.PC] Stat Oth 09/10/19 08:42 Ordered Labs: Laboratory Tests 09/10/19 09/10/19 09/10/19 Range/Units 09:04 09:04 11:13 WBC 10.89 H (3.98-10.04) K/mm3 RBC 4.25 (3.98-5.22) M/mm3 Hgb 12.4 (11.2-15.7) gm/dl Hct 38.4 (34.1-44.9) % MCV 90.4 (79.4-94.8) fl MCH 29.2 (25.6-32.2) pg MCHC 32.3 (32.2-35.5) g/dl RDW Std Deviation 43.1 (36.4-46.3) fL Plt Count 350 (182-369) K/mm3 MPV 10.1 (9.4-12.3) fl Neut % (Auto) 65.7 (34.0-71.1) % Lymph % (Auto) 24.1 (19.3-51.7) % [place] % (Auto) 7.6 (4.7-12.5) % Eos % (Auto) 2.2 (0.7-5.8) Baso % (Auto) 0.2 (0.1-1.2) % Neut # (Auto) 7.16 H (1.56-6.13) K/mm3 Lymph # (Auto) 2.62 (1.18-3.74) K/mm3 [place] # (Auto) 0.83 H (0.24-0.36) K/mm3 Eos # (Auto) 0.24 (0.04-0.36) K/mm3 Baso # (Auto) 0.02 (0.01-0.08) K/mm3 Sodium 142 (136-145) mEq/L Potassium 3.9 (3.5-5.1) mEq/L Chloride 106 (98-107) mEq/L Carbon Dioxide 28 (21-32) mEq/L Anion Gap 11.9 (5-15) BUN 8 (7-18) mg/dL Creatinine 0.7 (0.55-1.02) mg/dL Est Cr Clr Drug Dosing 83.63 mL/min Estimated GFR (MDRD) > 60 (>60) mL/min BUN/Creatinine Ratio 11.4 L (14-18) Glucose 113 H (74-106) mg/dL Calcium 9.4 (8.5-10.1) mg/dL Total Bilirubin 0.4 (0.2-1.0) mg/dL AST 40 H (15-37) U/L ALT 75 H (14-59) U/L Alkaline Phosphatase 84 (46-116) U/L Troponin I < 0.017 < 0.017 (0.00-0.056) ng/mL Total Protein 6.8 (6.4-8.2) g/dl Albumin 3.5 (3.4-5.0) g/dl Globulin 3.3 gm/dL Albumin/Globulin Ratio 1.1 (1-2) Meds: Medications Discontinued Medications Generic Name Dose Route Start Last Admin Trade Name Freq PRN Reason Stop Dose Admin Aspirin 324 mg 09/10/19 08:42 09/10/19 08:58 Aspirin PO 09/10/19 08:43 324 mg ONETIME ONE Administration Cyclobenzaprine HCl 10 mg 09/10/19 08:41 09/10/19 08:58 Flexeril PO 09/10/19 08:42 10 mg ONETIME ONE Administration Ketorolac Tromethamine 30 mg 09/10/19 08:41 09/10/19 08:59 Toradol IVPUSH 09/10/19 08:42 30 mg ONETIME ONE Administration Sodium Chloride 10 ml 09/10/19 08:42 09/10/19 08:58 Saline Flush FLUSH 10 ml ASDIRECTED PRN Administration Keep Vein Open - Re-Assessments/Exams Free Text/Narrative Re-Assessment/Exam: Patient's hematology is grossly unremarkable. Troponin was negative. She is verbalizing some relief with the Toradol and Flexeril. We will repeat a troponin at approximately 11:00 this morning. If that comes back normal she will be discharged home with naproxen and Flexeril. I will recommend that she follow up with her primary care provider for a possible echocardiogram as her chest x-ray does show that she has cardiomegaly. 09/10/19 1200 repeat troponin was negative. Patient will be discharged home with Naprosyn and Flexeril and to follow up with her primary care provider for possible echocardiogram. Discharge instructions as noted. Departure - Departure Time of Disposition: 12:16 Disposition: Home, Self-Care 01 Condition: Fair Clinical Impression: Atypical chest pain Upper back strain Qualifiers: Encounter type: initial encounter Qualified Code(s): S29.012A - Strain of muscle and tendon of back wall of thorax, initial encounter Prescriptions: Naproxen [Naprosyn] 500 mg PO Q12HR 5 Days #10 tab Cyclobenzaprine [Flexeril] 10 mg PO TID PRN #10 tab PRN Reason: Muscle Spasm Instructions: Muscle Strain, [id number], Chest Wall Pain Referrals: Brynn Booth NP [Primary Care Provider] - Forms: ED Department Discharge, ED Return to Work/School Form Additional Instructions: You were seen in the emergency department today with pain in your back that radiated to your chest and collar bone. Your workup included lab work, a EKG of your heart, and a chest x-ray. Your workup was negative for a heart attack, however, your chest x-ray did show that you will have cardiomegaly which is an enlarged heart. It is likely that the source of your pain today is musculoskeletal in nature. A prescription for Naprosyn and Flexeril has been sent to [facility] in [place]. Take this medication as needed for pain and muscle spasms. Do not drive after taking the Flexeril as this can be sedating. I do recommend that she follow up with her primary care provider and discuss having an echocardiogram done to assess the function of your heart as well as the probable cardiomegaly. If you should experience any new or worsening symptoms, please do not hesitate to return to the emergency department. Sepsis Event Note - Evaluation Sepsis Screening Result: No Definite Risk - Focused Exam Vital Signs: Vital Signs Temp Pulse Resp BP Pulse Ox 09/10/19 08:26 97.6 F 65 24 H 147/101 H 100 Date Exam was Performed: 09/10/19 Time Exam was Performed: 16:40 - My Orders Last 24 Hours: My Active Orders 09/10/19 08:29 EKG Documentation Completion [RC] STAT 09/10/19 08:42 Peripheral IV Care [RC] . DIRECTED Peripheral IV Insertion Adult [OM.PC] Stat - Assessment/Plan Last 24 Hours: My Active Orders 09/10/19 08:29 EKG Documentation Completion [RC] STAT 09/10/19 08:42 Peripheral IV Care [RC] . DIRECTED Peripheral IV Insertion Adult [OM.PC] Stat
--- NOTE | 2019-09-10 09:20 | CR ---
Chest: Portable view of the chest was obtained. Comparison: Prior chest x-ray of 04/12/16. Heart is slightly enlarged. Tortuous thoracic aorta is seen. Lungs are clear with no acute parenchymal change. Bony structures are grossly intact. Impression: 1. Cardiomegaly. 2. Nothing acute is otherwise seen. Diagnostic code #2 This report was dictated in [place] Standard Time
== END 2019-09-10 12:30 | disposition home or self-care (01) ==
LOC: JD.ED 08:09
DX: S29.012A Strain of muscle and tendon of back wall of thorax, initial encounter (principal); R07.89 Other chest pain; F17.210 Nicotine dependence, cigarettes, uncomplicated; Z91.030 Bee allergy status; Z88.8 Allergy status to other drugs, medicaments and biological substances; Z88.5 Allergy status to narcotic agent; Z91.048 Other nonmedicinal substance allergy status; Z79.899 Other long term (current) drug therapy; X58.XXXA Exposure to other specified factors, initial encounter
CPT/HCPCS: 36415; 71045; 80053; 84484; 85025; 93005; 96374; 99285; A9270; J1885; 93010; 99284

== ENCOUNTER 2020-03-20 20:40 | Emergency (ER) | payer OTHER ==
[2020-03-20 20:57] VITALS: BP 127/97; PULSE 66
[2020-03-20] MEDS ORDERED: Ondansetron 4 MG/2 ML SDV IVPUSH ONE (21:56)
[2020-03-20] MEDS ORDERED: Sodium Chloride 0.9% 10 ML Syringe FLUSH PRN ×2 (21:56→23:12)
[2020-03-20] MEDS ORDERED: Sodium Chloride 0.9% 1,000 ML IV SCH (22:00)
--- NOTE | 2020-03-20 22:06 | EDM.PDOC ---
<Janelle Walker - Last Filed: 03/20/20 23:02> ED HPI GENERAL MEDICAL PROBLEM - General Chief Complaint: Gastrointestinal Problem Stated Complaint: CONSTAPATION FOR 3 DAYS NOT GETTING BETTER Time Seen by Provider: 03/20/20 20:49 Source of Information: Reports: Patient History Limitations: Reports: No Limitations - History of Present Illness INITIAL COMMENTS - FREE TEXT/NARRATIVE: Patient is a 54-year-old female who presents to the emergency department with complaints of what she describes as constipation for the last 3 days. She has had generalized abdominal discomfort with intermittent cramping. States that last night around 9 PM she took a Dulcolax. About 5:00 this morning she had a amount of loose stool and passed a small amount of blood. She states she does have a history of hemorrhoids occasionally bleed. She also had some nausea and diaphoresis this morning, however that has since resolved. She states that she took a Colace around 5 PM this evening prior to coming to the ER. She has had no results with that. The last time she can remember that she had a normal bowel movement was about 5 days ago. She has had problems with constipation in the past, however states that taking the dulcolax and the Colace generally. She states that she has not been passing much gas today. Denies any prior abdominal surgeries. Has no history of bowel obstruction. Lower Abdomen Pain Score (Numeric/FACES): 6 - Related Data Allergies Allergy/AdvReac Type Severity Reaction Status Date / Time bee venom protein (honey bee) Allergy Severe Swelling Verified 03/20/20 20:57 diphenhydramine Allergy Severe Anxiety Verified 03/20/20 20:57 [From Benadryl] grass pollen Allergy Severe Other Verified 03/20/20 20:57 oxycodone HCl Allergy Severe Itching Verified 03/20/20 20:57 [From OxyContin] pollen extracts Allergy Severe Other Verified 03/20/20 20:57 pet dander Allergy Severe Other Uncoded 03/20/20 20:57 Home Meds: Home Meds Biotin 1 mg PO DAILY 08/03/15 [History] Calcium Carbonate/Vitamin D3 [Calcium 600 + D Tablet] 1 tab PO DAILY 08/03/15 [History] Multivitamin [Daily Alex] 1 tab PO DAILY 08/03/15 [History] atenoloL [Atenolol] 50 mg PO DAILY 08/03/15 [History] Cholecalciferol (Vitamin D3) [Vitamin D3] 5,000 unit PO DAILY 04/11/16 [History] hydrOXYzine HCL [Atarax] 25 mg PO BEDTIME PRN 11/30/17 [History] Cetirizine [ZyrTEC] 10 mg PO DAILY 02/19/18 [History] Cyclobenzaprine [Flexeril] 10 mg PO TID PRN #10 tab 09/10/19 [Rx] Naproxen [Naprosyn] 500 mg PO Q12HR 5 Days #10 tab 09/10/19 [Rx] Selenium 1 tab 09/10/19 [History] Past Medical History HEENT History: Reports: Impaired Vision Other HEENT History: Wears glasses Cardiovascular History: Reports: Arrhythmia Other Cardiovascular History: PSVT Respiratory History: Reports: Asthma Gastrointestinal History: Reports: Irritable Bowel Syndrome Genitourinary History: Reports: Renal Calculus, Urinary Incontinence Musculoskeletal History: Reports: Other (See Below) Other Musculoskeletal History: Pt had back effusion surgery L4-S1 in 2018. Neurological History: Reports: Headaches, Chronic Psychiatric History: Reports: ADHD, Anxiety, Depression Endocrine/Metabolic History: Reports: Obesity/BMI 30+ - Past Surgical History HEENT Surgical History: Reports: Naso-Sinus Surgery, Oral Surgery, Tonsillectomy Female Surgical History: Reports: Hysterectomy, Tubal Ligation Musculoskeletal Surgical History: Reports: Other (See Below) Social & Family History - Family History Family Medical History: Noncontributory Oncologic: Reports: Colon, Leukemia, Lung - Tobacco Use Smoking Status *Q: Never Smoker Second Hand Smoke Exposure: No - Caffeine Use Caffeine Use: Reports: Coffee - Recreational Drug Use Recreational Drug Use: No - Living Situation & Occupation Living situation: Reports: , with Spouse Occupation: Unemployed ED ROS GENERAL - Review of Systems Review Of Systems: See Below Constitutional: Reports: Diaphoresis, Decreased Appetite. Denies: Fever, Chills, Fatigue HEENT: Reports: No Symptoms Respiratory: Reports: No Symptoms Cardiovascular: Reports: No Symptoms Endocrine: Reports: No Symptoms GI/Abdominal: Reports: Abdominal Pain, Constipation, Nausea. Denies: Vomiting : Reports: No Symptoms Musculoskeletal: Reports: No Symptoms Skin: Reports: No Symptoms Neurological: Reports: No Symptoms Psychiatric: Reports: No Symptoms Hematologic/Lymphatic: Reports: No Symptoms Immunologic: Reports: No Symptoms ED EXAM, GI/ABD - Physical Exam Exam: See Below Exam Limited By: No Limitations General Appearance: Alert, WD/WN, No Apparent Distress Respiratory/Chest: No Respiratory Distress, Lungs Clear, Normal Breath Sounds, No Accessory Muscle Use, Chest Non-Tender Cardiovascular: Normal Peripheral Pulses, Regular Rate, Rhythm, No Edema, No Gallop, No JVD, No Murmur, No Rub GI/Abdominal Exam: Soft, Non-Tender, No Organomegaly, No Distention, No Abnormal Bruit, No Mass, Pelvis Stable, Tender (Generalized throughout. Worse in the left lateral and left lower quadrants), Abnormal Bowel Sounds (Hypoactive throughout). No: Guarding, Rigid, Rebound Neurological: Alert, Oriented, CN II-XII Intact, Normal Cognition, Normal Gait, Normal Reflexes, No Motor/Sensory Deficits Psychiatric: Normal Affect, Normal Mood Skin Exam: Warm, Dry, Intact, Normal Color, No Rash Course - Re-Assessments/Exams Free Text/Narrative Re-Assessment/Exam: 03/20/20 22:07 Abdomen flat and upright was completed and showed normal bowel gas pattern no air-fluid levels. There is not a significant amount of stool visible on the x- ray. Discussed the option with the patient of treating constipation with magnesium citrate versus completing a CT of the abdomen pelvis to rule out bowel obstruction. After much indecisiveness, she did finally decide to proceed with a CT scan. I have ordered a CT scan of the abdomen pelvis with contrast, CBC, CMP, CRP, lipase, urinalysis. We will do IV fluids of NS at 150 as well as Zofran to prevent nausea due to the oral contrast. 03/20/20 23:[address] Barreto. He will assume care and disposition of the patient. Departure - Departure Disposition: Home, Self-Care 01 Clinical Impression: Colitis - Discharge Information Instructions: Colitis Referrals: Brynn Booth NP [Primary Care Provider] - Vini Lal MD [Physician] - Forms: ED Department Discharge Additional Instructions: You were seen in the emergency room for abdominal cramps and the sensation of constipation. Up in the ER included blood work, a urinalysis, x-rays of your abdomen, and a CT scan of your abdomen and pelvis with oral and IV contrast. Your blood work and urinalysis were unremarkable. The x-rays of your abdomen found no stool, however, the CT of your abdomen and pelvis found inflammation of your colon (colitis) from the sigmoid flexure down to the rectum. There are several different types of colitis. Exactly which type of colitis you are suffering from is not known. We therefore recommend that you follow-up with Dr. Vini Lal to see if a repeat colonoscopy is indicated. If any other problems, please do not hesitate to return to the ER. Sepsis Event Note (ED) - Evaluation Sepsis Screening Result: No Definite Risk <Gautam Barreto - Last Filed: 03/21/20 01:02> Course - Vital Signs Last Recorded V/S: Last Vital Signs Temp 36.1 C 03/20/20 20:54 Pulse 66 03/20/20 20:54 Resp 16 03/20/20 20:54 BP 127/97 H 03/20/20 20:54 Pulse Ox 98 03/20/20 20:54 - Orders/Labs/Meds Orders: Active Orders 24 hr Category Date Time Status Peripheral IV Care [RC] . DIRECTED Care 03/20/20 21:56 Active Abdomen 2V AP Flat Upright [CR] Stat Exams 03/20/20 20:57 Taken Abdomen Pelvis w Cont [CT] Stat Exams 03/20/20 21:56 Taken Sodium Chloride 0.9% [Normal Saline] 1,000 ml Med 03/20/20 22:00 Active IV ASDIRECTED Sodium Chloride 0.9% [Saline Flush] Med 03/20/20 21:56 Active 10 ml FLUSH ASDIRECTED PRN Sodium Chloride 0.9% [Saline Flush] Med 03/20/20 23:12 Active 10 ml FLUSH ONETIME PRN Peripheral IV Insertion Adult [OM.PC] Stat Oth 03/20/20 21:56 Ordered Medication Orders Sodium Chloride (Normal Saline) 1,000 mls @ 150 mls/hr IV ASDIRECTED DEION Last Admin: 03/20/20 22:14 Dose: 150 mls/hr Documented by: EVONCOU Sodium Chloride (Saline Flush) 10 ml FLUSH ASDIRECTED PRN PRN Reason: Keep Vein Open Last Admin: 03/20/20 22:14 Dose: 10 ml Documented by: EVONCOU Sodium Chloride (Saline Flush) 10 ml FLUSH ONETIME PRN PRN Reason: Keep Vein Open Last Admin: 03/20/20 23:30 Dose: 10 ml Documented by: [id number] Labs: Laboratory Tests 03/20/20 03/20/20 03/20/20 Range/Units 22:10 22:10 23:42 WBC 14.26 H (3.98-10.04) K/mm3 RBC 4.60 (3.98-5.22) M/mm3 Hgb 13.5 (11.2-15.7) gm/dl Hct 41.1 (34.1-44.9) % MCV 89.3 (79.4-94.8) fl MCH 29.3 (25.6-32.2) pg MCHC 32.8 (32.2-35.5) g/dl RDW Std Deviation 42.6 (36.4-46.3) fL Plt Count 321 (182-369) K/mm3 MPV 10.1 (9.4-12.3) fl Neut % (Auto) 74.2 H (34.0-71.1) % Lymph % (Auto) 18.0 L (19.3-51.7) % [place] % (Auto) 6.8 (4.7-12.5) % Eos % (Auto) 0.7 (0.7-5.8) Baso % (Auto) 0.2 (0.1-1.2) % Neut # (Auto) 10.57 H (1.56-6.13) K/mm3 Lymph # (Auto) 2.57 (1.18-3.74) K/mm3 [place] # (Auto) 0.97 H (0.24-0.36) K/mm3 Eos # (Auto) 0.10 (0.04-0.36) K/mm3 Baso # (Auto) 0.03 (0.01-0.08) K/mm3 Manual Slide Review Normal smear Sodium 142 (136-145) mEq/L Potassium 3.3 L (3.5-5.1) mEq/L Chloride 103 (98-107) mEq/L Carbon Dioxide 28 (21-32) mEq/L Anion Gap 14.3 (5-15) BUN 11 (7-18) mg/dL Creatinine 0.9 (0.55-1.02) mg/dL Est Cr Clr Drug Dosing 66.90 mL/min Estimated GFR (MDRD) > 60 (>60) mL/min BUN/Creatinine Ratio 12.2 L (14-18) Glucose 94 (74-106) mg/dL Calcium 9.3 (8.5-10.1) mg/dL Total Bilirubin 0.6 (0.2-1.0) mg/dL AST 22 (15-37) U/L ALT 43 (14-59) U/L Alkaline Phosphatase 79 (46-116) U/L C-Reactive Protein 1.3 H* (<1.0) mg/dL Total Protein 7.7 (6.4-8.2) g/dl Albumin 3.9 (3.4-5.0) g/dl Globulin 3.8 gm/dL Albumin/Globulin Ratio 1.0 (1-2) Lipase 63 L (73-393) U/L Urine Color Yellow (Yellow) Urine Appearance Clear (Clear) Urine pH 6.0 (5.0-8.0) Ur Specific [place] 1.020 (1.005-1.030) Urine Protein Negative (Negative) Urine Glucose (UA) Negative (Negative) Urine Ketones Negative (Negative) Urine Occult Blood Trace-lysed H (Negative) Urine Nitrite Negative (Negative) Urine Bilirubin Negative (Negative) Urine Urobilinogen 0.2 (0.2-1.0) Ur Leukocyte Esterase Negative (Negative) Urine RBC Not seen (0-5) /hpf Urine WBC 0-5 (0-5) /hpf Ur Epithelial Cells 0-5 (0-5) /hpf Urine Bacteria Not seen (FEW) /hpf Urine Mucus Few (FEW) /hpf Meds: Medications Generic Name Dose Route Start Last Admin Trade Name Freq PRN Reason Stop Dose Admin Sodium Chloride 1,000 mls @ 150 mls/hr 03/20/20 22:00 03/20/20 22:14 Normal Saline IV 150 mls/hr ASDIRECTED DEION Administration Sodium Chloride 10 ml 03/20/20 21:56 03/20/20 22:14 Saline Flush FLUSH 10 ml ASDIRECTED PRN Administration Keep Vein Open Sodium Chloride 10 ml 03/20/20 23:12 03/20/20 23:30 Saline Flush FLUSH 10 ml ONETIME PRN Administration Keep Vein Open Discontinued Medications Generic Name Dose Route Start Last Admin Trade Name Freq PRN Reason Stop Dose Admin Diatrizoate Meglum/Diatrizoate Sod 90 ml 03/20/20 23:12 03/20/20 23:30 Gastrografin 37% PO 03/20/20 23:13 90 ml ONETIME ONE Administration Iopamidol 100 ml 03/20/20 23:12 03/20/20 23:30 Isovue-300 (61%) IVPUSH 03/20/20 23:13 100 ml ONETIME ONE Administration Ondansetron HCl 4 mg 03/20/20 21:56 03/20/20 22:14 Zofran IVPUSH 03/20/20 21:57 4 mg ONETIME ONE Administration - Re-Assessments/Exams Free Text/Narrative Re-Assessment/Exam: 03/21/20 00:22 The patient's CBC is remarkable for WBC count elevated at 14.26, with the remainder of her CBC being unremarkable. Her CMP is remarkable for a potassium slightly depressed at 3.3, and is otherwise unremarkable. Her CRP is slightly elevated at 1.3. Her urinalysis is unremarkable. CT of the abdomen and pelvis with oral and IV contrast is read by Liz as: "Segmental colitis involving the colon from the splenic flexure to the rectum. Cannot exclude neoplasm in the proximal ascending colon, consider colonoscopy as clinically indicated." 03/21/20 00:42 Test results discussed with the patient. The patient states that she has undergone 2 previous colonoscopies, most recently in August 2018, performed by Dr. Lal. She was found to have a few colon polyps, some of which were biopsied, but no other abnormalities. Because of her current finding of descending colitis, I am recommending that she follow-up with Dr. Lal see if a repeat colonoscopy is indicated. Departure - Departure Time of Disposition: 00:42 Condition: Good - Discharge Information *PRESCRIPTION DRUG MONITORING PROGRAM REVIEWED*: Not Applicable *COPY OF PRESCRIPTION DRUG MONITORING REPORT IN PATIENT RICHY: Not Applicable Sepsis Event Note (ED) - Focused Exam Vital Signs: Vital Signs Temp Pulse Resp BP Pulse Ox 03/20/20 20:54 36.1 C 66 16 127/97 H 98
[2020-03-20] MEDS ORDERED: Diatrizoate Meglumine/Diatrizoate Sodium 37% 120 ML Bottle PO ONE (23:12)
[2020-03-20] MEDS ORDERED: Iopamidol 612 MG/ML 100 ML Bottle IVPUSH ONE (23:12)
--- NOTE | 2020-03-21 06:20 | CR ---
Abdomen: Supine and upright views the abdomen were obtained. Comparison: Prior abdominal x-ray of 03/06/16. Scoliosis is noted within the spine. Prior lower lumbar spine surgery is noted. Sclerotic area which correlates to a bony exostosis noted within the proximal femoral shaft. Bowel gas pattern appears normal. No free air is seen. Impression: 1. Bony findings which are felt to be chronic as described above. 2. Nothing acute is seen on abdominal x-ray. Diagnostic code #2 This report was dictated in MDT
--- NOTE | 2020-03-21 06:36 | CT ---
CT abdomen and pelvis Technique: Multiple axial sections were obtained from above the dome of the diaphragm inferiorly through the pubic symphysis. Intravenous and oral contrast was utilized. Comparison: Prior abdominal x-ray performed earlier on the same day (9:15 PM). Findings: Visualized lung bases show nothing acute. Fatty infiltration is seen within the liver. Small hiatal hernia is noted. Spleen appears within normal limits. Calcified gallstones noted within the gallbladder measuring 1.0 cm. Kidneys show symmetric contrast enhancement with no hydronephrosis or mass. Pancreas appears within normal limits. Aorta shows no aneurysm. No retroperitoneal adenopathy is seen. Appendix is visualized and appears normal in size. No pelvic mass or adenopathy is seen. Delayed images shows contrast within the distal left ureter as well as contrast within the bladder. Focal bowel wall thickening with luminal narrowing noted at the hepatic flexure within the ascending colon. This may represent spasm but difficult to exclude neoplasm. Bowel wall thickening noted within portions of the descending colon and sigmoid regions suspicious for colitis. Bone window settings were reviewed. Scoliosis noted within the spine. Transpedicle screws are seen at L4-5 and L5-S1. Mild degenerative change is seen throughout other portions of the spine. Impression: 1. Focal area of narrowing and bowel wall thickening at the hepatic flexure within the ascending colon. This may represent spasm although neoplasm cannot be excluded. Colonoscopy recommended to further evaluate. 2. Bowel wall thickening within the descending colon and sigmoid regions suspicious for nonspecific colitis. 3. Other findings as noted above which are nonacute. Diagnostic code #9 This report was dictated in MDT I agree with preliminary report from [facility], finalized on , 12:59 AM Central Daylight Time
== END 2020-03-21 00:55 | disposition home or self-care (01) ==
LOC: JD.ED 20:40
DX: K52.9 Noninfective gastroenteritis and colitis, unspecified (principal); Z91.030 Bee allergy status; Z88.8 Allergy status to other drugs, medicaments and biological substances; Z88.5 Allergy status to narcotic agent; Z91.048 Other nonmedicinal substance allergy status; Z79.899 Other long term (current) drug therapy
CPT/HCPCS: 36415; 74019; 74177; 80053; 81001; 83690; 85025; 86140; 96361; 96374; 99284; J2405; J7030; Q9963; Q9967; 99283

== ENCOUNTER 2020-04-06 07:54 | Day surgery (SDC) | payer OTHER ==
[~2020-04-06 07:54] MED LIST: Lactated Ringers 1,000 ML IV SCH; Lidocaine 1%/Sod Bicarbonate in NS 8.4% 1 ML Syringe IDERM PRN; Sodium Chloride 0.9% 10 ML Syringe FLUSH PRN
[2020-04-06] MEDS ORDERED: Propofol 200 MG/20 ML SDV ONE ×2 (08:32→09:24)
[2020-04-06] MEDS ORDERED: fentaNYL 100 MCG/2 ML SDV ONE (08:32)
[2020-04-06] MEDS ORDERED: Midazolam 1 MG/ML 2 ML SDV ONE (08:32)
[2020-04-06] MEDS ORDERED: Lidocaine 1% 4 ML ONE (08:32)
--- NOTE | 2020-04-06 08:39 | PCM.PREANE ---
Preanesthetic Assessment - Anesthesia/Transfusion/Family Hx Anesthesia History: Prior Anesthesia Without Reaction - Review of Systems General: No Symptoms Pulmonary: No Symptoms Cardiovascular: No Symptoms Gastrointestinal: No Symptoms Neurological: No Symptoms Other: Reports: Depression, Anxiety - Physical Assessment Vital Signs: Last Vital Signs Temp 97.2 F 04/06/20 08:00 Pulse 71 04/06/20 08:00 Resp 20 04/06/20 08:00 BP 137/83 04/06/20 08:00 Pulse Ox 95 04/06/20 08:00 ASA Class: 2 Mental Status: Alert & Oriented x3 Airway Class: Mallampati = 2 Dentition: Reports: Normal Dentition, [place](s), Missing Tooth/Teeth Thyro-Mental Finger Breadths: 3 Mouth Opening Finger Breadths: 3 ROM/Head Extension: Full Lungs: Clear to Auscultation, Normal Respiratory Effort Cardiovascular: Regular Rate, Regular Rhythm - Lab Values: Laboratory Last Values COVID-19 PCR Not detected (NOT DETECT) 04/04/20 11:09 - Allergies Allergies/Adverse Reactions: Allergies Allergy/AdvReac Type Severity Reaction Status Date / Time oxycodone HCl Allergy Severe Itching Verified 04/05/20 14:29 [From OxyContin] pollen extracts Allergy Severe Other Verified 04/05/20 14:29 venom-wasp Allergy Itching Verified 04/05/20 14:29 pet dander Allergy Severe Other Uncoded 04/05/20 14:29 - Acknowledgements Anesthesia Type Planned: MAC Pt an Appropriate Candidate for the Planned Anesthesia: Yes Alternatives and Risks of Anesthesia Discussed w Pt/Guardian: Yes Pt/Guardian Understands and Agrees with Anesthesia Plan: Yes PreAnesthesia Questionnaire HEENT History: Reports: Impaired Vision Other HEENT History: Wears glasses Cardiovascular History: Reports: Arrhythmia Other Cardiovascular History: PSVT Respiratory History: Reports: Asthma Gastrointestinal History: Reports: Irritable Bowel Syndrome Genitourinary History: Reports: Renal Calculus, Urinary Incontinence 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 Neurological History: Reports: Headaches, Chronic Psychiatric History: Reports: ADHD, Anxiety, Depression Endocrine/Metabolic History: Reports: Obesity/BMI 30+ - Past Surgical History Head Surgeries/Procedures: Reports: None HEENT Surgical History: Reports: Naso-Sinus Surgery, Oral Surgery, Tonsillectomy Cardiovascular Surgical History: Reports: None Respiratory Surgical History: Reports: None GI Surgical History: Reports: Colonoscopy Female Surgical History: Reports: Hysterectomy, Tubal Ligation Endocrine Surgical History: Reports: None Neurological Surgical History: Reports: None Musculoskeletal Surgical History: Reports: Other (See Below) Other Musculoskeletal Surgeries/Procedures:: left elbow surgery Oncologic Surgical History: Reports: None Dermatological Surgical History: Reports: None - SUBSTANCE USE Smoking Status *Q: Former Smoker Recreational Drug Use History: No - HOME MEDS Home Medications: Home Meds atenoloL [Atenolol] 50 mg PO DAILY 08/03/15 [History] Selenium 100 mcg PO DAILY 09/10/19 [History] 5-Hydroxytryptophan (5-Htp) [5-Htp] 200 mg PO DAILY 04/05/20 [History] Albuterol Sulfate [Albuterol Sulfate Hfa] 2 puff INH QID PRN 04/05/20 [History] Biotin 5 mg PO DAILY 04/05/20 [History] Calcium Citrate/Vitamin D3 [Citracal + D Maximum Caplet] 1 tab PO DAILY 04/05/20 [History] Diclofenac Sodium [Voltaren 1% Gel] 1 dose TOP QID PRN 04/05/20 [History] EPINEPHrine [Epipen] 1 dose IM ONETIME PRN 04/05/20 [History] Loratadine [Claritin] 10 mg PO DAILY 04/05/20 [History] Magnesium Oxide 500 mg PO DAILY 04/05/20 [History] Phentermine HCl [Adipex-P] 37.5 mg PO DAILY 04/05/20 [History] - CURRENT (IN HOUSE) MEDS Current Meds: Current Medications Lactated Ringer's (Ringers, Lactated) 1,000 mls @ 125 mls/hr IV ASDIRECTED DEION Stop: 04/06/20 23:00 Last Admin: 04/06/20 08:20 Dose: 125 mls/hr Documented by: Lidocaine/Sodium Bicarbonate (Buffered Lidocaine 1% In Ns 8.4%) 0.25 ml IDERM ONETIME PRN PRN Reason: Prior to IV Start Stop: 04/06/20 18:00 Last Admin: 04/06/20 08:19 Dose: 0.25 ml Documented by: Sodium Chloride (Saline Flush) 10 ml FLUSH ASDIRECTED PRN PRN Reason: Keep Vein Open Stop: 04/06/20 18:00 Discontinued Medications Fentanyl (Sublimaze) Confirm Administered Dose 100 mcg .ROUTE .STK-MED ONE Stop: 04/06/20 08:33 Lidocaine HCl (Xylocaine-Mpf 1%) Confirm Administered Dose 4 mls @ as directed .ROUTE .STK-MED ONE Stop: 04/06/20 08:33 Midazolam HCl (Versed 1 Mg/Ml) Confirm Administered Dose 4 mg .ROUTE .STK-MED ONE Stop: 04/06/20 08:33 Propofol (Diprivan 20 Ml) Confirm Administered Dose 400 mg .ROUTE .STK-MED ONE Stop: 04/06/20 08:33
--- NOTE | 2020-04-06 09:54 | PCM.OPNOTE ---
- General Post-Op/Procedure Note Date of Surgery/Procedure: 04/06/20 Operative Procedure(s): Colonoscopy Findings: 1. transverse colon polyp 2. No residual colitis or mass Pre Op Diagnosis: Colitis and abnormal CT findings Post-Op Diagnosis: same Anesthesia Technique: DEEDEE Primary Surgeon: Gris Copeland Anesthesia Provider: Magen Horowitz Pathology: Transverse colon polyp Fluid Replacement, Intraop: 1,000 Output, Urine Amount: 0 EBL in mLs: 0 Complications: none apparent Condition: Good
--- NOTE | 2020-04-06 10:01 | PCM.PRNOTE ---
- Free Text/Narrative Note: Operative Report Date of Surgery/Procedure: April 06, 2020 Operative Procedure: Colonoscopy to cecum with biopsy Pre Op Diagnosis: Colitis with abnormal CT findings Post-Op Diagnosis: Same Surgeon: Gris Copeland MD Anesthesia Technique: MAC Anesthesia Provider: Magen Horowitz CRNA IV Fluid Replacement, Intraop: 1000cc Output, Urine Amount: 0cc EBL : 0cc Findings: 1. Transverse colon polyp 2. No residual colitis or mass Specimens: Transverse colon polyp Indication: The patient is a 54 year-old lady who presented to the outpatient clinic after ED visit for colitis. We discussed the procedure of a diagnostic colonoscopy including the polypectomy and biopsy. Risks of bleeding and perforation were discussed, the patient understood and wished to proceed. Written and consent was obtained. Description of the procedure: The patient was brought to the endoscopy suite and placed in the left lateral decubitus position. Appropriate monitors were applied. The patient was given MAC anesthesia. An anorectal examination was performed, revealing minimal anal skin tags. The scope was placed into the rectum and advanced to cecum with difficulty requiring change in patient position to supine and external abdominal pressure. The patients cecum was entered, and the ileocecal valve and appendiceal orifice were identified and normal. At this point, the scope was withdrawn, paying careful attention to the mucosa. The patient had good bowel prep, allowing for visualization of 90-95% of the mucosa. A single transverse colon polyp was noted, measuring 4mm and flat. It was removed using a jumbo cold biopsy forceps. Residual liquid stool was aspirated for stool culture and lactoferrin testing. In the rectum, the scope was retroflexed and no abnormalities were noted, except for some hemorrhoidal tissue. The scope was placed back in the lumen and the excess air was aspirated. The patient tolerated the procedure well. Complications: none apparent Condition: Good, transported to PACU in stable condition Gris Copeland MD General Surgery
--- NOTE | 2020-04-06 10:04 | PCM48HPAN ---
Post Anesthesia Note - EVALUATION WITHIN 48HRS OF ANESTHETIC Vital Signs in Normal Range: Yes Patient Participated in Evaluation: Yes Respiratory Function Stable: Yes Airway Patent: Yes Cardiovascular Function Stable: Yes Hydration Status Stable: Yes Pain Control Satisfactory: Yes Nausea and Vomiting Control Satisfactory: Yes Mental Status Recovered: Yes Vital Signs: Last Vital Signs Temp 97.1 F 04/06/20 09:56 Pulse 68 04/06/20 09:56 Resp 12 04/06/20 09:56 BP 102/54 L 04/06/20 09:56 Pulse Ox 95 04/06/20 09:56 - COMMENTS/OBSERVATIONS Free Text/Narrative:: no anesthesia complications noted
[2020-04-06 10:49] VITALS: BP 119/57; PULSE 64
== END 2020-04-06 10:47 | disposition home or self-care (01) ==
LOC: JD.SDS 07:54
PROVIDERS: ATTEND Surgery
DX: D12.3 Benign neoplasm of transverse colon (principal); K64.8 Other hemorrhoids; K64.4 Residual hemorrhoidal skin tags; Z11.59 Encounter for screening for other viral diseases; K52.9 Noninfective gastroenteritis and colitis, unspecified; E66.9 Obesity, unspecified; Z87.19 Personal history of other diseases of the digestive system; Z87.891 Personal history of nicotine dependence; Z79.899 Other long term (current) drug therapy; Z88.8 Allergy status to other drugs, medicaments and biological substances; Z68.33 Body mass index [BMI] 33.0-33.9, adult
CPT/HCPCS: 45380; 83630; 87045; 87046; 87635; 87899; J2001; J2250; J2704; J3010; J7120; 00811; U0002

== ENCOUNTER 2020-10-31 19:10 | Emergency (ER) | payer OTHER ==
[2020-10-31 19:22] VITALS: BP 156/96; PULSE 65
--- NOTE | 2020-10-31 19:40 | EDM.PDOC ---
ED HPI GENERAL MEDICAL PROBLEM - General Chief Complaint: Lower Extremity Injury/Pain Stated Complaint: PT FELL Time Seen by Provider: 10/31/20 19:20 Source of Information: Reports: Patient History Limitations: Reports: No Limitations - History of Present Illness INITIAL COMMENTS - FREE TEXT/NARRATIVE: 54-year-old female presents emergency department complaints of left lower ex tremity injury. States she was walking down some stairs this evening just prior to arrival and she did not see the last step. She missed the step and her left ankle rolled laterally in her to fall. She was unable to bear weight after this occurred. Not recall hearing any snapping or cracking. Left Ankle Pain Score (Numeric/FACES): 9 - Related Data Allergies Allergy/AdvReac Type Severity Reaction Status Date / Time oxycodone HCl Allergy Severe Itching Verified 10/31/20 19:22 [From OxyContin] pollen extracts Allergy Severe Other Verified 10/31/20 19:22 venom-wasp Allergy Itching Verified 10/31/20 19:22 pet dander Allergy Severe Other Uncoded 10/31/20 19:22 Home Meds: Home Meds atenoloL [Atenolol] 50 mg PO DAILY 08/03/15 [History] Selenium 100 mcg PO DAILY 09/10/19 [History] 5-Hydroxytryptophan (5-Htp) [5-Htp] 200 mg PO DAILY 04/05/20 [History] Albuterol Sulfate [Albuterol Sulfate Hfa] 2 puff INH QID PRN 04/05/20 [History] Biotin 5 mg PO DAILY 04/05/20 [History] Calcium Citrate/Vitamin D3 [Citracal + D Maximum Caplet] 1 tab PO DAILY 04/05/20 [History] Diclofenac Sodium [Voltaren 1% Gel] 1 dose TOP QID PRN 04/05/20 [History] EPINEPHrine [Epipen] 1 dose IM ONETIME PRN 04/05/20 [History] Loratadine [Claritin] 10 mg PO DAILY 04/05/20 [History] Magnesium Oxide 500 mg PO DAILY 04/05/20 [History] Phentermine HCl [Adipex-P] 37.5 mg PO DAILY 04/05/20 [History] Past Medical History HEENT History: Reports: Impaired Vision Other HEENT History: Wears glasses Cardiovascular History: Reports: Arrhythmia Other Cardiovascular History: PSVT Respiratory History: Reports: Asthma Gastrointestinal History: Reports: Irritable Bowel Syndrome Genitourinary History: Reports: Renal Calculus, Urinary Incontinence 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 Neurological History: Reports: Headaches, Chronic Psychiatric History: Reports: ADHD, Anxiety, Depression Endocrine/Metabolic History: Reports: Obesity/BMI 30+ Hematologic History: Reports: None Immunologic History: Reports: None Oncologic (Cancer) History: Reports: None Dermatologic History: Reports: None - Past Surgical History Head Surgeries/Procedures: Reports: None HEENT Surgical History: Reports: Naso-Sinus Surgery, Oral Surgery, Tonsillectomy Cardiovascular Surgical History: Reports: None Respiratory Surgical History: Reports: None GI Surgical History: Reports: Colonoscopy Female Surgical History: Reports: Hysterectomy, Tubal Ligation Endocrine Surgical History: Reports: None Neurological Surgical History: Reports: None Musculoskeletal Surgical History: Reports: Other (See Below) Other Musculoskeletal Surgeries/Procedures:: left elbow surgery Oncologic Surgical History: Reports: None Dermatological Surgical History: Reports: None Social & Family History - Family History Family Medical History: No Pertinent Family History Oncologic: Reports: Colon, Leukemia, Lung - Tobacco Use Tobacco Use Status *Q: Current Some Day Tobacco User Years of Tobacco use: 5 Packs/Tins Daily: 0.1 - Caffeine Use Caffeine Use: Reports: None - Recreational Drug Use Recreational Drug Use: No - Living Situation & Occupation Living situation: Reports: , with Spouse Occupation: Unemployed Review of Systems - Review of Systems Review Of Systems: Comprehensive ROS is negative, except as noted in HPI. ED EXAM, GENERAL - Physical Exam Exam: See Below Exam Limited By: No Limitations General Appearance: Alert, WD/WN, No Apparent Distress Eye Exam: Bilateral Eye: PERRL Ears: Hearing Grossly Normal Nose: Normal Inspection Throat/Mouth: Normal Inspection, Normal Voice, No Airway Compromise Head: Atraumatic, Normocephalic Neck: Normal Inspection Respiratory/Chest: No Respiratory Distress (Female) Exam: Deferred Rectal (Female) Exam: Deferred Extremities: Normal Inspection, Joint Swelling, Limited Range of Motion (Left ankle left ankle). No: Non-Tender (Ankle tender medially and laterally with palpation), No Pedal Edema (Edema noted to lateral portion of left ankle) Neurological: Alert, Oriented, Normal Cognition Psychiatric: Normal Affect, Normal Mood Skin Exam: Warm, Dry, Intact, Normal Color, No Rash Lymphatic: No Adenopathy Course - Vital Signs Text/Narrative:: 54-year-old presenting with a left ankle injury as she missed the last step while going down a flight of stairs. She states she slipped and stepped on her ankle and it rolled out laterally causing her to fall. She states she is unable to bear any weight or ambulate after this occurred. Left ankle is swollen on the lateral portion but there is no bruising noted at the time of assessment. I have ordered a left foot and left ankle x-ray. Last Recorded V/S: Last Vital Signs Temp 97.8 F 10/31/20 19:18 Pulse 65 10/31/20 19:18 Resp 16 10/31/20 19:18 BP 156/96 H 10/31/20 19:18 Pulse Ox 99 10/31/20 19:18 - Orders/Labs/Meds Orders: Active Orders 24 hr Category Date Time Status Ankle Min 3V Lt [CR] Stat Exams 10/31/20 19:39 Taken Foot Comp Min 3V Lt [CR] Stat Exams 10/31/20 19:39 Taken - Radiology Interpretation Free Text/Narrative:: Nothing acute is appreciated on left ankle and left foot x-ray. I did have Dr. Louie review these with me as well. - Re-Assessments/Exams Free Text/Narrative Re-Assessment/Exam: 10/31/20 20:18 She will be discharged to home with recommendations that she use crutches and minimal weightbearing for the remainder the week. She is to rest as much as possible, ice, use compression and elevate the extremity. She may take Tylenol or ibuprofen for the discomfort. Departure - Departure Time of Disposition: 20:19 Disposition: Home, Self-Care 01 Condition: Good Clinical Impression: Left ankle sprain Qualifiers: Encounter type: initial encounter Involved ligament of ankle: unspecified ligament Qualified Code(s): S93.402A - Sprain of unspecified ligament of left ankle, initial encounter Ankle sprain Qualifiers: Encounter type: initial encounter Involved ligament of ankle: unspecified ligament Laterality: right Qualified Code(s): S93.401A - Sprain of unspecified ligament of right ankle, initial encounter - Discharge Information Instructions: Ankle Sprain, [id number] Referrals: Brynn Booth NP [Primary Care Provider] - Forms: ED Department Discharge Additional Instructions: You were seen in the ED today with complaints of left ankle injury after missing the last step while ambulating down a flight of stairs. Xrays of your left foot and left ankle were completed and there is no acute fracture appreciated. Recommend minimal weight bearing for the remainder of the week. Use crutches as you say you already have these at home. Rest as much as possible, ice the area 20 minutes at a time three times daily, use samantha bandage for compression, and elevate it as much as possible. May take Tylenol 650mg every 4 hours as needed for pain or Ibuprofen every 6 hours as needed for pain. Sepsis Event Note (ED) - Evaluation Sepsis Screening Result: No Definite Risk - Focused Exam Vital Signs: Vital Signs Temp Pulse Resp BP Pulse Ox 10/31/20 19:18 97.8 F 65 16 156/96 H 99 - My Orders Last 24 Hours: My Active Orders 10/31/20 19:39 Ankle Min 3V Lt [CR] Stat Foot Comp Min 3V Lt [CR] Stat - Assessment/Plan Last 24 Hours: My Active Orders 10/31/20 19:39 Ankle Min 3V Lt [CR] Stat Foot Comp Min 3V Lt [CR] Stat
--- NOTE | 2020-11-01 06:59 | CR ---
Left foot: 4 views of the left foot were obtained. Comparison: No previous left foot study is available. Small plantar spur is noted. Joint spaces are preserved. Slight deformity is noted within the distal fifth metatarsal. This is compatible with fracture although the age of this is unknown. No additional fracture line, dislocation or other osseous abnormality is appreciated. Impression: 1. Fracture within the distal fifth metatarsal. Please correlate if patient is symptomatic to this region for this to be acute. 2. Plantar spur. 3. No other acute osseous finding is seen. Diagnostic code #3
--- NOTE | 2020-11-01 06:59 | CR ---
Left ankle: 4 views of the left ankle were obtained. Comparison: No prior left ankle study is available. Small plantar spur is noted. Ankle mortise is symmetric. No acute fracture, dislocation or other osseous abnormality is appreciated. Impression: 1. Small plantar spur. 2. No acute osseous finding is seen on the left ankle study. Diagnostic code #2
== END 2020-10-31 20:41 | disposition home or self-care (01) ==
LOC: JD.ED 19:10
DX: S93.402A Sprain of unspecified ligament of left ankle, initial encounter (principal); J45.909 Unspecified asthma, uncomplicated; E66.9 Obesity, unspecified; Z68.34 Body mass index [BMI] 34.0-34.9, adult; Z88.5 Allergy status to narcotic agent; Z91.030 Bee allergy status; Z91.048 Other nonmedicinal substance allergy status; Z79.899 Other long term (current) drug therapy; Z72.0 Tobacco use; X50.9XXA Other and unspecified overexertion or strenuous movements or postures, initial encounter
CPT/HCPCS: 73610-26-LT; 73610-LT; 73630-26-LT; 73630-LT; 99283; 99283-25

== ENCOUNTER 2021-01-24 10:20 | Emergency (ER) | payer OTHER ==
[2021-01-24] MEDS ORDERED: Ketorolac 60 MG/2 ML SDV IM ONE (11:33)
[2021-01-24] MEDS ORDERED: Cyclobenzaprine 10 MG Tab PO ONE (11:33)
--- NOTE | 2021-01-24 12:10 | EDM.PDOC ---
ED HPI GENERAL MEDICAL PROBLEM - General Chief Complaint: Back Pain or Injury Stated Complaint: BACK PAIN Time Seen by Provider: 01/24/21 11:03 Source of Information: Reports: Patient, RN Notes Reviewed History Limitations: Reports: No Limitations - History of Present Illness INITIAL COMMENTS - FREE TEXT/NARRATIVE: Patient is a 55-year-old female presenting to the emergency department with complaints of worsening of her chronic back pain. She reports that over the last 2 weeks, she has been having increased SI joint pain, lumbar pain, and thoracic pain that radiates up into her neck. She reports intermittent weakness in her upper extremities as well as lower extremities. She has had adjustments from a chiropractor with little relief. She has had no bowel or bladder dysfunction. She reports a long history of chronic back problems. She has had fusion of L4, L5, and S1. Reports the pain today is slightly above this level. She had MRI completed of her C-spine in November and states that her neck is "all messed up ". She is had consultations with neurosurgery and is receiving differing opinions on whether or not she needs surgery. She is had no new injuries. She has been using Tylenol and ibuprofen for pain with her last dose being around 0700 this morning. back Pain Score (Numeric/FACES): 10 - Related Data Allergies Allergy/AdvReac Type Severity Reaction Status Date / Time oxycodone HCl Allergy Severe Itching Verified 10/31/20 19:22 [From OxyContin] pollen extracts Allergy Severe Other Verified 10/31/20 19:22 venom-wasp Allergy Itching Verified 10/31/20 19:22 pet dander Allergy Severe Other Uncoded 10/31/20 19:22 Home Meds: Home Meds atenoloL [Atenolol] 50 mg PO DAILY 08/03/15 [History] Selenium 100 mcg PO DAILY 09/10/19 [History] 5-Hydroxytryptophan (5-Htp) [5-Htp] 200 mg PO DAILY 04/05/20 [History] Albuterol Sulfate [Albuterol Sulfate Hfa] 2 puff INH QID PRN 04/05/20 [History] Biotin 5 mg PO DAILY 04/05/20 [History] Calcium Citrate/Vitamin D3 [Citracal + D Maximum Caplet] 1 tab PO DAILY 04/05/20 [History] Diclofenac Sodium [Voltaren 1% Gel] 1 dose TOP QID PRN 04/05/20 [History] EPINEPHrine [Epipen] 1 dose IM ONETIME PRN 04/05/20 [History] Loratadine [Claritin] 10 mg PO DAILY 04/05/20 [History] Magnesium Oxide 500 mg PO DAILY 04/05/20 [History] Phentermine HCl [Adipex-P] 37.5 mg PO DAILY 04/05/20 [History] Cyclobenzaprine [Flexeril] 5 mg PO TID PRN #10 tab 01/24/21 [Rx] Hydrocodone/Acetaminophen [Hydrocodone-Acetamin 5-325 mg] 1 each PO Q4H PRN #12 tablet 01/24/21 [Rx] predniSONE [Prednisone] 20 mg PO ASDIRECTED #15 tablet 01/24/21 [Rx] Past Medical History HEENT History: Reports: Impaired Vision Other HEENT History: Wears glasses Cardiovascular History: Reports: Arrhythmia Other Cardiovascular History: PSVT Respiratory History: Reports: Asthma Gastrointestinal History: Reports: Irritable Bowel Syndrome Genitourinary History: Reports: Renal Calculus, Urinary Incontinence BOOM STICK MAN History: Reports: Other (See Below) Other BOOM STICK MAN History: genital herpes simplex virus Musculoskeletal History: Reports: Other (See Below) Other Musculoskeletal History: Pt had back fusion surgery L4-S1 in 2018. Neurological History: Reports: Headaches, Chronic Psychiatric History: Reports: ADHD, Anxiety, Depression Endocrine/Metabolic History: Reports: Obesity/BMI 30+ Hematologic History: Reports: None Immunologic History: Reports: None Oncologic (Cancer) History: Reports: None Dermatologic History: Reports: None - Past Surgical History Head Surgeries/Procedures: Reports: None HEENT Surgical History: Reports: Naso-Sinus Surgery, Oral Surgery, Tonsillectomy Cardiovascular Surgical History: Reports: None Respiratory Surgical History: Reports: None GI Surgical History: Reports: Colonoscopy Female Surgical History: Reports: Hysterectomy, Tubal Ligation Endocrine Surgical History: Reports: None Neurological Surgical History: Reports: None Musculoskeletal Surgical History: Reports: Other (See Below) Other Musculoskeletal Surgeries/Procedures:: left elbow surgery Oncologic Surgical History: Reports: None Dermatological Surgical History: Reports: None Social & Family History - Family History Family Medical History: No Pertinent Family History Oncologic: Reports: Colon, Leukemia, Lung - Tobacco Use Tobacco Use Status *Q: Never Tobacco User - Caffeine Use Caffeine Use: Reports: None - Recreational Drug Use Recreational Drug Use: No - Living Situation & Occupation Living situation: Reports: , with Spouse Occupation: Unemployed ED ROS GENERAL - Review of Systems Review Of Systems: Comprehensive ROS is negative, except as noted in HPI. ED EXAM,LOWER BACK PAIN/INJURY - Physical Exam Exam: See Below General Appearance: Alert, WD/WN, No Apparent Distress Respiratory/Chest: No Respiratory Distress, Lungs Clear, Normal Breath Sounds, No Accessory Muscle Use, Chest Non-Tender Cardiovascular: Normal Peripheral Pulses, Regular Rate, Rhythm, No Edema, No Gallop, No JVD, No Murmur, No Rub Back Exam: Normal Inspection, Full Range of Motion, Paraspinal Tenderness (throughout the right side of the back), Vertebral Tenderness (throughout the thoracic and lumbar spine), Other (right SI joint tenderness) Neurological: Alert, Normal Mood/Affect, Normal Dorsiflexion, CN II-XII Intact, Normal Plantar Flexion, Normal Gait, Normal Reflexes, No Motor/Sensory Deficits, Oriented x 3 Psychiatric: Normal Affect, Normal Mood Skin Exam: Warm, Dry, Intact, Normal Color, No Rash Course - Vital Signs Last Recorded V/S: Last Vital Signs Temp 97.2 F 01/24/21 14:20 Pulse 72 01/24/21 14:20 Resp 18 01/24/21 14:20 BP 122/76 01/24/21 14:20 Pulse Ox 97 01/24/21 14:20 - Orders/Labs/Meds Meds: Medications Discontinued Medications Generic Name Dose Route Start Last Admin Trade Name Freq PRN Reason Stop Dose Admin Cyclobenzaprine HCl 10 mg 01/24/21 11:33 01/24/21 11:45 Cyclobenzaprine 10 Mg Tab PO 01/24/21 11:34 10 mg ONETIME ONE Administration Ketorolac Tromethamine 60 mg 01/24/21 11:33 01/24/21 11:49 Ketorolac 60 Mg/2 Ml Sdv IM 01/24/21 11:34 60 mg ONETIME ONE Administration - Re-Assessments/Exams Free Text/Narrative Re-Assessment/Exam: 01/24/21 13:27 X-ray of the thoracic and lumbar spine shows previous surgery on L4-L5 and L5- S1. Otherwise there is mild diffuse disc space narrowing with scoliosis seen throughout the spine. Nothing acute is visualized on either x-ray. Patient will be discharged home with a prescription for Flexeril, prednisone, and Lawrence. Recommend that she call today to schedule a follow-up with her primary care provider for ongoing monitoring and possible MRIs as they deem necessary. Discharge instructions as documented. Departure - Departure Time of Disposition: 13:28 Disposition: Home, Self-Care 01 Condition: Good Clinical Impression: Chronic back pain Qualifiers: Back pain location: back pain in unspecified location Back pain laterality: unspecified Qualified Code(s): M54.9 - Dorsalgia, unspecified - Discharge Information *PRESCRIPTION DRUG MONITORING PROGRAM REVIEWED*: Yes *COPY OF PRESCRIPTION DRUG MONITORING REPORT IN PATIENT RICHY: No Prescriptions: Cyclobenzaprine [Flexeril] 5 mg PO TID PRN #10 tab PRN Reason: Muscle Spasm Hydrocodone/Acetaminophen [Hydrocodone-Acetamin 5-325 mg] 1 each PO Q4H PRN #12 tablet PRN Reason: Pain predniSONE [Prednisone] 20 mg PO ASDIRECTED #15 tablet Instructions: Chronic Back Pain, [id number] Referrals: Brynn Booth NP [Primary Care Provider] - Forms: ED Department Discharge, ED Return to Work/School Form Additional Instructions: You were seen in the emergency department today for evaluation with regards to worsening of your chronic back pain. X-rays were completed of your thoracic and lumbar spine and showed disc space narrowing throughout your spine as well as scoliosis. While in the ER, you received Flexeril and Toradol. Prescription for prednisone, Flexeril, and Lawrence has been sent to [facility]. Uses medications as prescribed. Recommend that you take Tylenol routinely. For pain not relieved by this, you may take 1 Lawrence. Do not work or drive for 12 hours after taking this medication as it can be sedating. Ensure that you are not taking in more than 4000 mg of Tylenol per day from all sources. Recommend that you call today to set up a follow-up appoint with your primary care provider for ongoing monitoring and MRIs as they deem necessary. Return to ER as needed. Sepsis Event Note (ED) - Evaluation Sepsis Screening Result: No Definite Risk - Focused Exam Vital Signs: Vital Signs Temp Pulse Resp BP Pulse Ox 01/24/21 14:20 97.2 F 72 18 122/76 97 01/24/21 10:35 97.3 F 71 18 150/83 H 97
--- NOTE | 2021-01-24 13:17 | CR ---
Lumbar spine: AP, lateral and coned-down lateral views centered to the lumbosacral junction are obtained. Comparison: Prior lumbar spine study of 03/06/18. Prior surgery is noted at L4-5 and L5-S1 with trans-pedicle screws. Intervertebral spacers are also noted at L4-5 and L5-S1. Other disc within the lumbar spine and lower thoracic spine show mild diffuse narrowing. Scoliosis is noted. Pedicles are intact. No subluxation or fracture is seen. Impression: 1. Prior surgery at L4-5 and L5-S1. 2. Mild diffuse disc space narrowing throughout other portions of the spine with scoliosis. 3. Nothing acute is otherwise seen. Diagnostic code #2
--- NOTE | 2021-01-24 13:18 | CR ---
Thoracic spine: AP and lateral views of the thoracic spine were obtained. Comparison: No prior thoracic spine plain film exam, prior MRI thoracic spine study of 12/10/17. Mild scattered disc space narrowing is noted. Mild scoliosis is noted. Pedicles are intact. Vertebral body heights are maintained. No acute fracture or subluxation is seen. Impression: 1. Mild diffuse disc space narrowing with scoliosis. 2. Nothing acute is otherwise seen. Diagnostic code #2
[2021-01-24 14:23] VITALS: BP 122/76; PULSE 72
== END 2021-01-24 14:30 | disposition home or self-care (01) ==
LOC: JD.ED 10:20
DX: M54.5 Low back pain (principal); M54.6 Pain in thoracic spine; J45.909 Unspecified asthma, uncomplicated; E66.9 Obesity, unspecified; Z68.41 Body mass index [BMI] 40.0-44.9, adult; Z88.5 Allergy status to narcotic agent; Z91.048 Other nonmedicinal substance allergy status; Z91.030 Bee allergy status; Z79.899 Other long term (current) drug therapy
CPT/HCPCS: 72072; 72100; 96372; 99283; A9270; J1885

== ENCOUNTER 2023-08-30 16:31 | Emergency (ER) | payer OTHER ==
[2023-08-30] MEDS ORDERED: Ketorolac 60 MG/2 ML SDV IM ONE (20:32)
[2023-08-30 20:51] VITALS: BP 137/91; PULSE 65
== END 2023-08-30 20:54 | disposition home or self-care (01) ==
LOC: JD.ED 16:31
DX: R07.81 Pleurodynia (principal); M25.531 Pain in right wrist; F17.210 Nicotine dependence, cigarettes, uncomplicated; J45.909 Unspecified asthma, uncomplicated; E66.9 Obesity, unspecified; Z79.899 Other long term (current) drug therapy; Z90.710 Acquired absence of both cervix and uterus; Z91.030 Bee allergy status; Z91.048 Other nonmedicinal substance allergy status; Z88.5 Allergy status to narcotic agent; Z68.36 Body mass index [BMI] 36.0-36.9, adult
CPT/HCPCS: 71101; 73110; 96372; 99283; J1885